=== PATIENT | male | born 1975 | race Caucasian/White ===

== ENCOUNTER → 2019-03-08 | Outpatient (CLI) | payer BC ==
--- NOTE | 2019-03-08 13:48 | Diagnostic Imaging Report ---
PROCEDURE: CT neck soft tissue without contrast. TECHNIQUE: Multiple contiguous axial images were obtained through the neck without the use of intravenous contrast. Auto Exposure Controls were utilized during the CT exam to meet ALARA standards for radiation dose reduction. INDICATION: Lump in the right neck/jaw. COMPARISON: None. FINDINGS: A large soft tissue mass is seen in the area of a right level II cervical lymph node measuring 4.6 x 3.3 cm and 5.0 cm craniocaudal (image 55 series 2 and image 26 series 602). This is displacing the right sternocleidomastoid muscle laterally. Additional mildly prominent cervical lymph nodes are seen bilaterally. The posterior nasopharynx and oropharynx demonstrate appropriate symmetry. There is no displacement of the parapharyngeal fat planes. There is no abnormal process evident within the prevertebral or retropharyngeal space. There is no evidence of abnormal thickening of the epiglottis or aryepiglottic folds. The vocal folds appear symmetric. The parotid, submandibular and thyroid gland are unremarkable. The visualized lung apices are clear. Included intracranial views demonstrate no acute abnormalities. A small amount of mucosal thickening is seen in the right frontal sinus and right anterior ethmoid sinuses. Otherwise, the paranasal sinuses are well pneumatized. The mastoid air cells are well pneumatized. The included globes and orbits are symmetric and unremarkable. There are mild degenerative features within the cervical spine without CT evidence of an acute or suspicious osseous abnormality. Cervical spine alignment appears within normal limits. IMPRESSION: 1. Large soft tissue mass in the area of a right level II cervical lymph node. Other possible etiologies include a second brachial cleft cyst or lymphocele. Recommend further evaluation with biopsy or FNA and if indicated contrast study of the neck to further evaluate. Findings were discussed with Tommie Hernandez at 1:42 p.m. on 03/08/2019. Dictated by: Dictated on workstation # [id number]
== END ==
LOC: RAD 13:02
PROVIDERS: ATTEND Nurse Practitioner Family
DX: R59.0 Localized enlarged lymph nodes (principal)
CPT/HCPCS: 70490

== ENCOUNTER → 2019-03-27 | Outpatient (CLI) | payer BC ==
[~2019-03-27] MED LIST: CATHETER FLUSH 10 ML SYR IV PRN; HOLD METFORMIN - RECEIVED CONTRAST 20 ML VIAL IV SCH; IOHEXOL 350 MG/ML 100 ML (OMNIPAQUE 350) VIAL IV ONE; NS 100 ML (IVPB) BAG IV ONE
--- NOTE | 2019-03-27 15:50 | Diagnostic Imaging Report ---
PROCEDURE: CT neck soft tissue with contrast. TECHNIQUE: Multiple contiguous axial images were obtained through the neck after the administration of contrast. Auto Exposure Controls were utilized during the CT exam to meet ALARA standards for radiation dose reduction. INDICATION: Right neck mass. FINDINGS: There is a mass lateral to the carotid space in the right neck along the anteromedial border of the sternocleidomastoid muscle. This appears separate from the parotid gland and submandibular gland. The mass measures approximately 6.6 cm craniocaudal x 3.9 cm AP x 3.6 cm transverse. There appear to be a few fine enhancing internal septa. The parotid, submandibular, and thyroid glands are normal in appearance. The lung apices are clear. Prevertebral soft tissues are within normal limits. The visualized sinuses and mastoid air cells are clear. Visualized intracranial structures are unremarkable. The nasopharyngeal, oropharyngeal, and hypopharyngeal tissues are symmetrical and without mass effect. There is some mild cervical spondylosis. IMPRESSION: Solid mass in the right neck with a few enhancing internal septa. Differential considerations include a lymphatic malformation, neoplasm, or possibly metastatic lymph node. This should be further evaluated with gadolinium-enhanced MRI neck. No other acute abnormality in the neck. Dictated by: Dictated on workstation # [id number]
== END ==
LOC: RAD 14:27
PROVIDERS: ATTEND Otolaryngology Otolaryngology/Facial Plastic Surgery
DX: R22.1 Localized swelling, mass and lump, neck (principal)
CPT/HCPCS: 70491

== ENCOUNTER → 2019-04-13 | Outpatient (CLI) | payer BC ==
[~2019-04-13] MED LIST changes: -CATHETER FLUSH 10 ML SYR IV PRN
--- NOTE | 2019-04-13 08:21 | Diagnostic Imaging Report ---
PROCEDURE: CT chest, abdomen, and pelvis with contrast. TECHNIQUE: Multiple contiguous axial images were obtained through the chest, abdomen, and pelvis after the administration of intravenous contrast. Auto Exposure Controls were utilized during the CT exam to meet ALARA standards for radiation dose reduction. INDICATION: Right neck malignancy. Study is performed to evaluate for primary neoplasm location. CT CHEST: No axillary lymphadenopathy is detected. No definite mediastinal or hilar lymphadenopathy is detected. No pericardial or pleural fluid is identified. No pulmonary nodules, masses or infiltrates are detected. IMPRESSION: Unremarkable CT of the chest. There is no evidence of thoracic lymphadenopathy or pulmonary mass. CT ABDOMEN AND PELVIS: Diffuse low-density throughout the liver is noted consistent with hepatic steatosis. No discrete liver mass is detected. The gallbladder is unremarkable. No biliary ductal dilatation is seen. The pancreas and spleen are unremarkable. No adrenal mass is detected. Kidneys are unremarkable. There is no hydronephrosis. Aorta is non-aneurysmal. Small and large bowel loops are normal caliber. There is no obstruction. No free fluid or fluid collection is identified. No central retroperitoneal or mesenteric lymphadenopathy is detected. No definite iliac or inguinal lymphadenopathy is identified. There is a fat-containing left inguinal hernia. Bladder and prostate are unremarkable. IMPRESSION: 1. Hepatic steatosis. 2. Otherwise unremarkable CT of the abdomen and pelvis. No lymphadenopathy or mass is detected. Dictated by: Dictated on workstation # [id number]
== END ==
LOC: RAD 07:34
PROVIDERS: ATTEND Otolaryngology Otolaryngology/Facial Plastic Surgery
DX: C76.0 Malignant neoplasm of head, face and neck (principal)
CPT/HCPCS: 71260; 74177

== ENCOUNTER 2019-04-18 05:50 | Outpatient (CLI) | payer BC ==
[~2019-04-18] VITALS: Ht 185 cm; Wt 140.0 kg
== END 2019-04-18 15:27 | disposition home or self-care (01) ==
LOC: PREOP 05:50
PROVIDERS: ATTEND Otolaryngology Otolaryngology/Facial Plastic Surgery
DX: Z01.818 Encounter for other preprocedural examination (principal)

== ENCOUNTER 2019-04-20 06:49 | Day surgery (SDC) | payer BC ==
[~2019-04-20] VITALS: Ht 185 cm; Wt 140.0 kg
[2019-04-20] VITALS (9 sets, daily range): BP systolic 126–157; BP diastolic 73–106
[2019-04-20] MEDS ORDERED: LIDOCAINE/EPI 1%-1:100,000 (XYLOCAINE) 20ML ONE (07:25)
[2019-04-20] MEDS ORDERED: SEVOFLURANE (ULTANE) 15 ML INHAL SOLN ONE (07:33)
[2019-04-20] MEDS ORDERED: ROCURONIUM 10 MG/ML 5 ML SYRINGE IV ONE (07:33)
[2019-04-20] MEDS ORDERED: fentaNYL INJECTION 100 MCG/2 ML AMP ONE (07:33)
[2019-04-20] MEDS ORDERED: MIDAZOLAM 2 MG/2 ML (VERSED) VIAL ONE ×2 (07:33→07:39)
[2019-04-20] MEDS ORDERED: ONDANSETRON 4 MG/2 ML (SDV) Z0FRAN ONE (07:33)
[2019-04-20] MEDS ORDERED: NEOSTIGMINE 3 MG/3 ML VIAL ONE (07:33)
[2019-04-20] MEDS ORDERED: GLYCOPYRROLATE 0.2 MG/ML (ROBINUL) 2 ML VIAL ONE (07:33)
[2019-04-20] MEDS ORDERED: DEXAMETHASONE 10 MG/ML (DECADRON) 1 ML VIAL ONE (07:33)
[2019-04-20] MEDS ORDERED: proPOfol 200 MG/20 ML (DIPRIVAN) VIAL IV ONE (07:33)
[2019-04-20] MEDS ORDERED: LIDOCAINE PF 2% 5 ML (XYLOCAINE) VIAL ONE (07:33)
[2019-04-20] MEDS: LACTATED RINGERS 1,000 ML IV PRN ×2 (07:34→10:03)
[2019-04-20 07:42] LABS: BASOPHILS % (AUTO) 1 % (0-10); EOSINOPHILS # (AUTO) 0.1 10^3/uL (0.0-0.3); EOSINOPHILS % (AUTO) 2 % (0-10); HEMATOCRIT 48 % (40-54); HEMOGLOBIN 16.3 G/DL (13.3-17.7); LYMPHOCYTES # (AUTO) 2.9 X 10^3 (1.0-4.0); LYMPHOCYTES % (AUTO) 37 % (12-44); MEAN CORPUSCULAR HEMOGLOBIN 30 PG (25-34); MEAN CORPUSCULAR HGB CONC 34 G/DL (32-36); MEAN CORPUSCULAR VOLUME 89 FL (80-99); MEAN PLATELET VOLUME 11.1 FL (7.4-10.4); MONOCYTES # (AUTO) 0.9 X 10^3 (0.0-1.0); MONOCYTES % (AUTO) 11 % (0-12); NEUTROPHILS # (AUTO) 3.9 X 10^3 (1.8-7.8); NEUTROPHILS % (AUTO) 50 % (42-75); PLATELET COUNT 220 10^3/uL (130-400); RED CELL DISTRIBUTION WIDTH 13.2 % (10.0-14.5); WHITE BLOOD COUNT 7.8 10^3/uL (4.3-11.0)
[2019-04-20 07:58] LABS: BUN/CREATININE RATIO 12; CALCIUM 9.2 MG/DL (8.5-10.1); CARBON DIOXIDE 20 MMOL/L (21-32); CHLORIDE 102 MMOL/L (98-107); CREATININE SERUM 1.04 MG/DL (0.60-1.30); GFR ESTIMATED > 60; GLUCOSE 331 MG/DL (70-105); POTASSIUM 4.5 MMOL/L (3.6-5.0); SODIUM 135 MMOL/L (135-145)
--- NOTE | 2019-04-20 08:49 | Progress Note-Pre Operative ---
Pre-Operative Progress Note H&P Reviewed The H&P was reviewed, patient examined and no changes noted. Date Seen by Provider: Apr 20, 2019 Time Seen by Provider: 07:30 Date H&P Reviewed: Apr 20, 2019 Time H&P Reviewed: 07:30 Pre-Operative Diagnosis: Large Right Neck Mass PHILIPPE CASTANEDA MD Apr 20, 2019 08:49
[2019-04-20] MEDS ORDERED: MIDAZOLAM 2 MG/2 ML (VERSED) VIAL IVP ONE (09:00)
[2019-04-20] MEDS ORDERED: MUPIROCIN 2% OINT 22 GM (BACTROBAN) TUBE ONE (10:06)
--- NOTE | 2019-04-20 10:14 | Progress Note-Post Operative ---
Post-Operative Progess Note Surgeon (s)/Product Promoter Sales Person (s) Surgeon PHILIPPE CASTANEDA MD Product Promoter Sales Person n/a Pre-Operative Diagnosis Large Right Neck Mass Post-Operative Diagnosis same Post-Op Procedure Note Date of Procedure: Apr 20, 2019 Name of Procedure Performed: Biopsy of Right Cervial Mass Description & Findings Description and Findings: n/a Anesthesia Type get Estimated Blood Loss minimal Packing none. Specimen(s) collected/removed right cervical mass to path-pathology pending PHILIPPE CASTANEDA MD Apr 20, 2019 10:13
[2019-04-20] MEDS ORDERED: ACETAMINOPHEN 325 MG TABLET PO PRN (10:15)
[2019-04-20] MEDS ORDERED: HYDROcodone/APAP 5 MG/325 MG (LORTAB) TAB PO PRN (10:15)
[2019-04-20] MEDS ORDERED: ONDANSETRON 4 MG/2 ML (SDV) Z0FRAN IVP PRN (10:30)
[2019-04-20] MEDS ORDERED: morphine INJ 10 MG/ML 1ML (SYR OR VIAL) IVP ONE (10:30)
[2019-04-20] MEDS ORDERED: HYDROmorphone 2 MG/ML VIAL (DILAUDID) IV ONE (10:30)
[2019-04-20] MEDS ORDERED: HYDR-4226 PO (11:49)
--- NOTE | 2019-04-20 13:07 | Anesthesia-General Post-Op ---
General Patient Condition Mental Status/LOC: Same as Preop Cardiovascular: Satisfactory Nausea/Vomiting: Absent Respiratory: Satisfactory Pain: Controlled Complications: Absent Post Op Complications Complications None Follow Up Care/Instructions Patient Instructions None needed. Anesthesia/Patient Condition Patient Condition Patient was seen this morning after the procedure and he was doing well, no complaints, stable vital signs, no apparent adverse anesthesia problems. NILAY MARTINEZ DO Apr 20, 2019 13:07
--- OUTSIDE RECORDS SUMMARY | 2019-04-24 12:27 | XMS REPORT | Continuity of Care Document ---
Author Organization Unknown Address Unknown Phone Unavailable Allergies Active Description Code Type Severity Reaction Onset Reported/Identified Relationship to Patient Clinical Status Yes No Allergy Information Available [id number] Drug Allergy Unknown N/A 020 Yes No Known Drug Allergies [id number] Drug Allergy Unknown N/A 04/18/2019 Medications There is no data. Problems Date Dx Coded Attending Type Code Diagnosis Diagnosed By 03/28/2019 JAYLYN GANDHI APRN Ot R59 .0 LOCALIZED ENLARGED LYMPH NODES 03/28/2019 PHILIPPE CASTANEDA MD Ot R22 .1 LOCALIZED SWELLING, MASS AND LUMP, NECK 04/12/2019 JAYLYN GANDHI APRN Ot R59 .0 LOCALIZED ENLARGED LYMPH NODES 04/12/2019 PHILIPPE CASTANEDA MD Ot R22 .1 LOCALIZED SWELLING, MASS AND LUMP, NECK 04/13/2019 JAYLYN GANDHI APRN Ot R59 .0 LOCALIZED ENLARGED LYMPH NODES 04/13/2019 PHILIPPE CASTANEDA MD Ot R22 .1 LOCALIZED SWELLING, MASS AND LUMP, NECK 04/13/2019 PHILIPPE CASTANEDA MD Ot R22 .1 LOCALIZED SWELLING, MASS AND LUMP, NECK 04/19/2019 PHILIPPE CASTANEDA MD Ot Z01.818 ENCOUNTER FOR OTHER PREPROCEDURAL EXAMIN Procedures There is no data. Results Test Result Range Methicillin resistant Staphylococcus aur eus (MRSA) screening culture - 04/20/19 07:10 Methicillin resistant Staphylococcus aureus (MRSA) scr eening culture NEG NRG Complete blood count (CBC) with automate d white blood cell (WBC) differential - 04/20/19 07:30 Blood leukocytes automated count (number/volume) 7.8 10*3/uL 4.3-11.0 Blood erythrocytes automated count (number/volume) 5.41 10*6/uL 4.35-5.85 Venous blood hemoglobin measurement (mass/volume) 16.3 g/dL 13.3-17.7 Blood hematocrit (volume fraction) 48 % 40-54 Automated erythrocyte mean corpuscular volume 89 [ foz_us] 80-99 Automated erythrocyte mean corpuscular h emoglobin (mass per erythrocyte) 30 pg 25-34 Automated erythrocyte mean corpuscular h emoglobin concentration measurement (mass/volume) 34 g/dL 32-36 Automated erythrocyte distribution width ratio 13. 2 % 10.0- 14.5 Automated blood platelet count (count/volume) 220 10*3/uL 130-400 Automated blood platelet mean volume measurement 11.1 [foz_us] 7.4-10.4 Automated blood neutrophils/100 leukocytes 50 % 42-75 Automated blood lymphocytes/100 leukocytes 37 % 12-44 Blood monocytes/100 leukocytes 11 % 0-12 Automated blood eosinophils/100 leukocytes 2 % 0-10 Automated blood basophils/100 leukocytes 1 % 0-10 Blood neutrophils automated count (number/volume) 3.9 10*3 1.8-7.8 Blood lymphocytes automated count (number/volume) 2.9 10*3 1.0-4.0 Blood monocytes automated count (number/volume) 0. 9 10*3 0.0-1.0 Automated eosinophil count 0.1 10*3/uL 0 .0-0.3 Automated blood basophil count (count/volume) 0.0 10*3/uL 0.0-0.1 Whole blood basic metabolic panel - 03/0 07/04 07:30 Serum or plasma sodium measurement (moles/volume) 135 mmol/L 135-145 Serum or plasma potassium measurement (moles/volume) 4.5 mmol/L 3.6-5.0 Serum or plasma chloride measurement (moles/volume) 102 mmol/L 98-107 Carbon dioxide 20 mmol/L 21-32 Serum or plasma anion gap determination (moles/volume) 13 mmol/L 5-14 Serum or plasma urea nitrogen measurement (mass/volume ) 12 mg/dL 7-18 Serum or plasma creatinine measurement (mass/volume) 1.04 mg/dL 0.60-1.30 Serum or plasma urea nitrogen/creatinine mass ratio 12 NRG Serum or plasma creatinine measurement w ith calculation of estimated glomerular filtration rate > NRG Serum or plasma glucose measurement (mass/volume) 331 mg/dL 70-105 Serum or plasma calcium measurement (mass/volume) 9.2 mg/dL 8.5-10.1 Encounters ACCT No. Visit Date/Time Discharge Status Pt. Type Provider Facility Loc./Unit Complaint [id number] 04/20/2019 06:49:00 12:43:00 DIS Outpatient PHILIPPE CASTANEDA MD Via [facility] SDC RIGHT NECK MASS [id number] 04/18/2019 05:50:00 15:27:00 DIS Outpatient PHILIPPE CASTANEDA MD Via [facility] PREOP RIGHT NECK MASS [id number] 04/13/2019 07:34:00 23:59:59 CLS Outpatient PHILIPPE CASTANEDA MD Via [facility] RAD RT NECK MALIGNANT CELL [id number] 03/27/2019 14:27:00 23:59:59 CLS Outpatient PHILIPPE CASTANEDA MD Via [facility] RAD RT NECK MASS [id number] 03/08/2019 13:02:00 23:59:59 CLS Outpatient JAYLYN GANDHI APRN Via [facility] RAD R ANTERIOR CERVICAL LYM PHADENOPATHY
== END 2019-04-20 12:43 | disposition home or self-care (01) ==
LOC: SDC 06:49
PROVIDERS: ATTEND Otolaryngology Otolaryngology/Facial Plastic Surgery
DX: C79.89 Secondary malignant neoplasm of other specified sites (principal); C80.1 Malignant (primary) neoplasm, unspecified; Z11.2 Encounter for screening for other bacterial diseases; F17.210 Nicotine dependence, cigarettes, uncomplicated; Z86.14 Personal history of Methicillin resistant Staphylococcus aureus infection
CPT/HCPCS: 36415; 80048; 85025; 87081; 93005

== ENCOUNTER 2019-06-16 09:20 | Outpatient (RCR) | payer BC ==
[~2019-06-16] VITALS: Ht 190.5 cm; Wt 141.8 kg
[~2019-06-16 09:20] MED LIST changes: +EMPA10TA PO; -HOLD METFORMIN - RECEIVED CONTRAST 20 ML VIAL IV SCH; +HYDR-4226 PO; -IOHEXOL 350 MG/ML 100 ML (OMNIPAQUE 350) VIAL IV ONE; +METF-397 PO; -NS 100 ML (IVPB) BAG IV ONE
== END 2019-06-16 15:13 | disposition home or self-care (01) ==
LOC: PREOP 09:20
PROVIDERS: ATTEND Surgery
DX: Z01.818 Encounter for other preprocedural examination (principal); Z01.812 Encounter for preprocedural laboratory examination; C34.90 Malignant neoplasm of unspecified part of unspecified bronchus or lung; R22.1 Localized swelling, mass and lump, neck
CPT/HCPCS: 87635

== ENCOUNTER 2019-06-21 06:27 | Day surgery (SDC) | payer BC ==
[~2019-06-21] VITALS: Ht 190.5 cm; Wt 141.8 kg
[2019-06-21] VITALS (7 sets, daily range): BP systolic 110–142; BP diastolic 74–94
[2019-06-21] MEDS ORDERED: LACTATED RINGERS 1,000 ML IV PRN (06:32)
--- OUTSIDE RECORDS SUMMARY | 2019-06-21 06:32 | XMS REPORT | Continuity of Care Document ---
Demographics Preferred Language Unknown Marital Status Unknown Shinto Affiliation Unknown Race Unknown Ethnic Group Unknown Author Organization Unknown Address Unknown Phone Unavailable Allergies Active Description Code Type Severity Reaction Onset Reported/Identified Relationship to Patient Clinical Status Yes No Allergy Information Available [id number] Drug Allergy Unknown N/A 020 Yes No Known Drug Allergies [id number] Drug Allergy Unknown N/A 04/18/2019 Medications There is no data. 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 1 LOCALIZED SWELLING, MASS AND LUMP, NECK 01/15/1512 SARAH GARCIA DO, Ot Z01.812 ENCOUNTER FOR PREPROCEDURAL LABORATORY E 01/15/1512 SARAH GARCIA DO, Ot Z01.818 ENCOUNTER FOR OTHER PREPROCEDURAL EXAMIN 03/28/2019 JAYLYN GANDHI APRN Ot R59 .0 [...] .1 LOCALIZED SWELLING, MASS AND LUMP, NECK 04/18/2019 PHILIPPE CASTANEDA MD Ot Z01.818 ENCOUNTER FOR OTHER PREPROCEDURAL EXAMIN 04/19/2019 PHILIPPE CASTANEDA MD Ot Z01.818 ENCOUNTER FOR OTHER PREPROCEDURAL EXAMIN 04/20/2019 PHILIPPE CASTANEDA MD Ot C79.89 SECONDARY MALIGNANT NEOPLASM OF OTHER SP 04/20/2019 PHILIPPE CASTANEDA MD Ot C80 .1 MALIGNANT (PRIMARY) NEOPLASM, UNSPECIFIE 04/20/2019 PHILIPPE CASTANEDA MD, Ot F17.210 NICOTINE DEPENDENCE, CIGARETTES, UNCOMPL 04/20/2019 PHILIPPE CASTANEDA MD, Ot Z11 .2 ENCOUNTER FOR SCREENING FOR OTHER BACTER 04/20/2019 PHILIPPE CASTANEDA MD, Ot Z86.14 PERSONAL HISTORY OF METHICILLIN RESIS ST 05/01/2019 PHILIPPE CASTANEDA MD Ot C76 .0 MALIGNANT NEOPLASM OF HEAD, FACE AND NEC 05/02/2019 PHILIPPE CASTANEDA MD, Ot C79.89 SECONDARY MALIGNANT NEOPLASM OF OTHER SP 05/02/2019 PHILIPPE CASTANEDA MD Ot C80 .1 MALIGNANT (PRIMARY) NEOPLASM, UNSPECIFIE 05/02/2019 PHILIPPE CASTANEDA MD, Ot F17.210 NICOTINE DEPENDENCE, CIGARETTES, UNCOMPL 05/02/2019 PHILIPPE CASTANEDA MD, Ot Z11 .2 ENCOUNTER FOR SCREENING FOR OTHER BACTER 05/02/2019 PHILIPPE CASTANEDA MD, Ot Z86.14 PERSONAL HISTORY OF METHICILLIN RESIS ST 06/06/2019 JAYLYN GANDHI Chery LABOR ECONOMICS PROFESSOR Ot R59 .0 LOCALIZED ENLARGED LYMPH NODES 06/06/2019 PHILIPPE CASTANEDA MD Ot R22 .1 LOCALIZED SWELLING, MASS AND LUMP, NECK 06/06/2019 PHILIPPE CASTANEDA MD, Ot C76 .0 MALIGNANT NEOPLASM OF HEAD, FACE AND NEC Procedures There is no data. Results Test [...] 0.0-0.1 Whole blood basic metabolic panel - 07/04 07:30 Serum or plasma sodium measurement [...] plasma calcium measurement (mass/volume) 9.2 mg/dL 8.5-10.1 CMP - 05/17/19 12:41 GLUCOSE 217 mg/dL 65-99 UREA NITROGEN (BUN) 15 mg/dL 7-25 CREATININE 0.80 mg/dL 0.60-1.35 eGFR NON-AFR. ZIMBABWEAN 110 mL/min/1.73m2 > OR = 60 eGFR 128 mL/min/1.73m2 > OR = 60 BUN/CREATININE RATIO NOT APPLICABLE (calc) 6-22 SODIUM 137 mmol/L 135-146 POTASSIUM 4.3 mmol/L 3.5-5.3 CHLORIDE 101 mmol/L 98-110 CARBON DIOXIDE 23 mmol/L 20-32 CALCIUM 10.1 mg/dL 8.6-10.3 PROTEIN, TOTAL 8.0 g/dL 6.1-8.1 ALBUMIN 4.9 g/dL 3.6-5.1 GLOBULIN 3.1 g/dL (calc) 1.9-3.7 ALBUMIN/GLOBULIN RATIO 1.6 (calc) 1.0-2. 5 BILIRUBIN, TOTAL 0.5 mg/dL 0.2-1.2 ALKALINE PHOSPHATASE 98 U/L 36-130 AST 22 U/L 10-40 ALT 45 U/L 9-46 CBC - 05/17/19 12:41 WHITE BLOOD CELL COUNT 8.0 Thousand/uL 3 .8-10.8 RED BLOOD CELL COUNT 5.83 Million/uL 4.2 0-5.80 HEMOGLOBIN 17.6 g/dL 13.2-17.1 HEMATOCRIT 54.4 % 38.5-50.0 MCV 93.3 fL 80.0-100.0 MCH 30.2 pg 27.0-33.0 MCHC 32.4 g/dL 32.0-36.0 RDW 13.1 % 11.0-15.0 PLATELET COUNT 220 Thousand/uL 140-400 MPV 12.3 fL 7.5-12.5 ABSOLUTE NEUTROPHILS 3464 cells/uL 1500- 7800 ABSOLUTE LYMPHOCYTES 3632 cells/uL 850-3 900 ABSOLUTE MONOCYTES 736 cells/uL 200-950 ABSOLUTE EOSINOPHILS 120 cells/uL 15-500 ABSOLUTE BASOPHILS 48 cells/uL 0-200 NEUTROPHILS 43.3 % NRG LYMPHOCYTES 45.4 % NRG MONOCYTES 9.2 % NRG EOSINOPHILS 1.5 % NRG BASOPHILS 0.6 % NRG UA W/ MICROSCOPY - 05/17/19 13:05 COLOR DARK YELLOW YELLOW APPEARANCE CLEAR CLEAR SPECIFIC GRAVITY 1.035 1.001-1.035 PH 5.5 5.0-8.0 GLUCOSE TRACE NEGATIVE BILIRUBIN NEGATIVE NEGATIVE KETONES TRACE NEGATIVE OCCULT BLOOD NEGATIVE NEGATIVE PROTEIN 1+ NEGATIVE NITRITE NEGATIVE NEGATIVE LEUKOCYTE ESTERASE NEGATIVE NEGATIVE WBC NONE SEEN /HPF < OR = 5 RBC 0-2 /HPF < OR = 2 SQUAMOUS EPITHELIAL CELLS NONE SEEN /HPF < OR = 5 BACTERIA NONE SEEN /HPF NONE SEEN HYALINE CAST 0-5 /LPF NONE SEEN TEST AUTHORIZATION - 05/17/19 13:05 TEST NAME: ALBUMIN, RANDOM URINE W/CREAT NRG TEST CODE: [id number] NRG CLIENT CONTACT: DAISY SORENSEN NRG REPORT ALWAYS MESSAGE SIGNATURE NRG COMMENT NRG Coronavirus SARS-CoV-2 SO 2018 0 13:30 Coronavirus Ab [Units/volume] in Serum Negative Negative Encounters ACCT No. Visit Date/Time Discharge Status Pt. Type Provider Facility Loc./Unit Complaint [id number] 05/17/2019 11:00:00 Document Registration [id number] 06/16/2019 09:20:00 15:13:00 DIS Outpatient SARAH GARCIA DO Via [facility] PREOP HIGH GRADE POORLY DIFFE RENTIATED CARCINOMA [id number] 06/14/2019 12:25:00 23:59:59 CLS Outpatient FRAN SHEETS, BRIEN lechuga [facility] ONC [id number] 04/20/2019 06:49:00 12:43:00 DIS Outpatient PHILIPPE CASTANEDA MD Via [facility] SDC RIGHT NECK MASS [id number] 04/18/2019 05:50:00 15:27:00 DIS Outpatient PHILIPPE CASTANEDA MD Via [facility] PREOP RIGHT NECK MASS [id number] 04/13/2019 07:34:00 23:59:59 CLS Outpatient PHILIPPE CASTANEDA MD Via [facility] RAD RT NECK MALIGNANT CELL [id number] 03/27/2019 14:27:00 23:59:59 CLS Outpatient PHILIPPE CASTANEDA MD Via [facility] RAD RT NECK MASS [id number] 03/08/2019 13:02:00 23:59:59 CLS Outpatient JAYLYN GANDHI LABOR ECONOMICS PROFESSOR Via [facility] RAD R ANTERIOR CERVICAL LYM PHADENOPATHY [id number] 06/21/2019 10:00:00 P EN Preadmit SARAH GARCIA DO Via [facility] SDC HIGH GRADE POORLY DIFFERENTI ATED CARCINOMA
[2019-06-21] MEDS ORDERED: ceFAZolin 2 GM IV Premixed 50 ML IV ONE (06:45)
[2019-06-21] MEDS ORDERED: BUP/EPI 0.5% 1:200,000 (SENSORCAINE) 30 ML VIAL ONE (07:09)
[2019-06-21] MEDS ORDERED: 0.9% SODIUM CHLORIDE PF INJ 20 ML VIAL ONE (07:09)
[2019-06-21] MEDS ORDERED: HEParin (CENTRAL IV FLUSH) 500 UNIT/5 ML SYR ONE (07:09)
[2019-06-21] MEDS ORDERED: proPOfol 200 MG/20 ML (DIPRIVAN) VIAL IV ONE ×2 (07:13→08:38)
[2019-06-21] MEDS ORDERED: KETAMINE/NaCl 50 MG/5 ML SYRINGE (ED ONLY) ONE (07:13)
[2019-06-21] MEDS ORDERED: LIDOCAINE PF 2% 5 ML (XYLOCAINE) VIAL ONE (07:13)
[2019-06-21] MEDS ORDERED: MIDAZOLAM 2 MG/2 ML (VERSED) VIAL ONE ×3 (07:13→08:29)
--- NOTE | 2019-06-21 08:10 | Progress Note-Pre Operative ---
Pre-Operative Progress Note H&P Reviewed The H&P was reviewed, patient examined and no changes noted. Date Seen by Provider: June 21, 2019 Time Seen by Provider: 08:00 Date H&P Reviewed: June 21, 2019 Time H&P Reviewed: 08:00 Pre-Operative Diagnosis: malignant tumor neck SARAH GARCIA DO June 21, 2019 08:10
--- NOTE | 2019-06-21 09:04 | Discharge Inst-Simple/Standard ---
Discharge Inst-Standard Patient Instructions/Follow Up Plan of Care/Instructions/FU: 2-3 WEEKS RADHA Activity as Tolerated: No Discharge Diet: Regular Diet Other Inst to Patient Follow up Appt: Make appointment for 2-3 weekS. Instructions: No lifting greater than 10 pounds. No strenuous activity. May shower in 24 hours, no tub bath or soaking. Use incentive spirometer at home as directed. No Smoking Skin/Wound Care: You have special glue over your incision that will fall off on it's own. USE ICE PACK ON 15 MIN OFF 30 MIN AND REPEAT TO REDUCE SWELLING AND DISCOMFORT. Symptoms to Report: Appetite Changes, Extremity Discoloration, Numbness/Tingling, Swelling Increased, Bleeding Excessive, Eyesight Changes, Pain Increased, Urine Color Change, Constipation(Persistent), Fever over 101 degree F, Pain/Pressure in chest, Urinating Difficulty, Cough Up/Vomit Blood, Heart Beat Irreg/Pounding, Pain/Pressure in jaw, Vaginal Bleeding Increase, Cramps in feet or legs, Lightheadedness, Pain/Pressure in shoulder, Diarrhea(Persistent), Memory Changes Suddenly, Questions/Concerns, Weight gain consecutive days, Dizziness/Fainting, Nausea/Vomiting, Shortness of Breath, Weight gain over 2 pounds If questions or concerns contact your physician Or seek help at emergency department. SARAH GARCIA DO June 21, 2019 09:04
--- NOTE | 2019-06-21 09:11 | Progress Note-Post Operative ---
Post-Operative Progess Note Surgeon (s)/Regulatory Affairs Coordinator (s) Surgeon SARAH GARCIA DO Regulatory Affairs Coordinator: NA Pre-Operative Diagnosis malignant tumor neck Post-Operative Diagnosis SAME Procedure & Operative Findings Date of Procedure 06/21/19 Procedure Performed/Findings PROCEDURE: LEFT internal jugular port placement using ultrasound guidance. COMPLICATIONS: None. INDICATIONS: The patient is a 43 year old male with malignant tumor of right neck. Patient understands the risks and benefits of port placement and wished to proceed with the procedure. Consent was signed on the chart. PROCEDURE: The patient was taken to the operating suite, was prepped and draped in the sterile fashion. A surgical pause was performed. Ultrasound was used to locate the internal jugular vein. Once located anesthetic was infiltrated above it. Using micro-access kit, the left internal vein was accessed. Dark nonpulsatile blood was withdrawn. The wire was inserted. Fluoroscopy assured proper placement. The needle was removed. The micro-access dilator was advanced over the wire and the wire was removed. The regular wire was inserted and fluoroscopy assured proper placement. The wire was then secured. Local anesthetic was used to anesthetize from the neck for tunneling down to the left chest and for pocket creation. A 15 blade scalpel was used to make an incision over the left chest. Cautery was used to dissect down to the pectoral fascia. A pocket was created with blunt dissection. The dilator sheath was then advanced over the wire under fluoroscopy and the dilator and wire were removed. The Groshong catheter was inserted through the sheath and the sheath was then removed. The Groshong wire was removed. The catheter was then tunneled to the right chest pocket. Fluoroscopy was used to cut to length and this was then attached to the port which was then placed within the pocket. The port was then accessed without difficulty. It was then flushed with saline and then heparin. The subcutaneous tissues were then reapproximated using 3-0 Vicryl. The areas were then washed and dried. Skin Affix was placed over incision. The insertion point of the neck Skin Affix was placed over the incision. The patient tolerated the procedure well without complication and was taken to recovery room in stable condition. Chest x-ray is pending. Anesthesia Type mac c local Estimated Blood Loss Estimated blood loss (mL): min Specimens/Packing Specimens Removed SARAH Cunningham DO June 21, 2019 09:11
[2019-06-21] MEDS ORDERED: ONDANSETRON 4 MG/2 ML (SDV) Z0FRAN IVP PRN (09:15)
[2019-06-21] MEDS ORDERED: morphine INJ 10 MG/ML 1ML (SYR OR VIAL) IVP ONE (09:15)
--- NOTE | 2019-06-21 09:42 | Diagnostic Imaging Report ---
INDICATION: Postop. FINDINGS: Portable chest. The Port-A-Cath is present on the left. Tip extends to the cavoatrial junction. The lungs are well-aerated and clear. No pneumothorax or pleural effusion. Heart is not enlarged. IMPRESSION: Satisfactory appearing Port-A-Cath placement with no complications noted. Dictated by: Dictated on workstation # [id number]
--- NOTE | 2019-06-21 09:43 | Anesthesia-General Post-Op ---
MAC Patient Condition Mental Status/LOC: Same as Preop Cardiovascular: Satisfactory Nausea/Vomiting: Absent Respiratory: Satisfactory Pain: Controlled Complications: Absent Post Op Complications Complications None Follow Up Care/Instructions Patient Instructions None needed. Anesthesiology Discharge Order Discharge Order Patient is doing well, no complaints, stable vital signs, no apparent adverse anesthesia problems. NILAY MARTINEZ DO June 21, 2019 09:43
--- NOTE | 2019-06-21 09:55 | Diagnostic Imaging Report ---
EXAMINATION: Fluoroscopy at 850 INDICATION: Groshong catheter placement Fluoroscopic assistance was provided for Dr. Cabrera. 157.8 seconds of fluoroscopy time was utilized. A single spot film of the upper thorax was obtained. There is a Groshong catheter in place on the left. The tip of the catheter is not well visualized but seems to overlie the junction of the innominate vein and superior vena cava. IMPRESSION: 1. Fluoroscopic assistance was provided for Dr. Cabrera. 2. A follow-up chest exam is pending for further study. Dictated by: Dictated on workstation # [id number]
== END 2019-06-21 10:05 | disposition home or self-care (01) ==
LOC: SDC 06:27
PROVIDERS: ATTEND Surgery
DX: C76.0 Malignant neoplasm of head, face and neck (principal); E11.9 Type 2 diabetes mellitus without complications; E66.9 Obesity, unspecified; Z79.891 Long term (current) use of opiate analgesic; Z79.01 Long term (current) use of anticoagulants; Z79.899 Other long term (current) drug therapy; Z90.89 Acquired absence of other organs; Z87.891 Personal history of nicotine dependence; Z79.84 Long term (current) use of oral hypoglycemic drugs; Z82.49 Family history of ischemic heart disease and other diseases of the circulatory system; Z80.9 Family history of malignant neoplasm, unspecified
CPT/HCPCS: 71045; 82962; 87081

== ENCOUNTER 2019-06-27 14:23 | Outpatient (RCR) | payer BC ==
[~2019-06-27] VITALS: Ht 185.4 cm; Wt 142.0 kg
[2019-07-17] MEDS ORDERED: FOSAPREPITANT (CANCER CENTER) 150 MG in NS (IVPB) CANCER CENTER ONLY 150 ML IV SCH (08:45)
[2019-07-17] MEDS ORDERED: NS IV 1000 ML (CANCER CTR) IV SCH (08:45)
[2019-07-17] MEDS ORDERED: PALONOSETRON HCL 0.25 MG, DEXAMETHASONE INJECTION 10 MG in NS (IVPB) CANCER CENTER 50 ML IV SCH (08:45)
[2019-07-17] MEDS ORDERED: CISPLATIN IV SCH ×4 (09:00)
[2019-07-17] MEDS ORDERED: [UNRECOGNIZED DRUG - OTHER] IV SCH ×4 (09:00)
[2019-07-17] MEDS ORDERED: MANNITOL IV SCH ×4 (09:00)
[2019-07-18 09:14] LABS: BASOPHILS % (AUTO) 0 % (0-10); EOSINOPHILS # (AUTO) 0.2 10^3/uL (0.0-0.3); EOSINOPHILS % (AUTO) 3 % (0-10); HEMATOCRIT 47 % (40-54); HEMOGLOBIN 15.7 G/DL (13.3-17.7); LYMPHOCYTES # (AUTO) 3.4 X 10^3 (1.0-4.0); LYMPHOCYTES % (AUTO) 44 % (12-44); MEAN CORPUSCULAR HEMOGLOBIN 30 PG (25-34); MEAN CORPUSCULAR HGB CONC 34 G/DL (32-36); MEAN CORPUSCULAR VOLUME 89 FL (80-99); MEAN PLATELET VOLUME 10.6 FL (7.4-10.4); MONOCYTES # (AUTO) 0.8 X 10^3 (0.0-1.0); MONOCYTES % (AUTO) 10 % (0-12); NEUTROPHILS # (AUTO) 3.3 X 10^3 (1.8-7.8); NEUTROPHILS % (AUTO) 43 % (42-75); PLATELET COUNT 217 10^3/uL (130-400); WHITE BLOOD COUNT 7.7 10^3/uL (4.3-11.0)
[2019-07-18 09:39] LABS: ALANINE AMINOTRANSFERASE 38 U/L (0-55); ALBUMIN 3.9 GM/DL (3.2-4.5); ALKALINE PHOSPHATASE 103 U/L (40-136); BILIRUBIN,TOTAL 0.5 MG/DL (0.1-1.0); BUN/CREATININE RATIO 11; CALCIUM 8.9 MG/DL (8.5-10.1); CARBON DIOXIDE 22 MMOL/L (21-32); CHLORIDE 104 MMOL/L (98-107); CREATININE SERUM 0.94 MG/DL (0.60-1.30); GFR ESTIMATED > 60; GLUCOSE 164 MG/DL (70-105); POTASSIUM 3.9 MMOL/L (3.6-5.0); SODIUM 138 MMOL/L (135-145); TOTAL PROTEIN 7.3 GM/DL (6.4-8.2)
== END 2019-07-18 09:10 | disposition home or self-care (01) ==
LOC: ONC 14:23
PROVIDERS: ATTEND Internal Medicine Hematology & Oncology
DX: C79.89 Secondary malignant neoplasm of other specified sites (principal); C80.1 Malignant (primary) neoplasm, unspecified; F17.210 Nicotine dependence, cigarettes, uncomplicated
CPT/HCPCS: 80053; 83735; 85025; 99213; 99214

== ENCOUNTER 2019-08-09 09:41 | Outpatient (RCR) | payer BC ==
[2019-07-24 14:48] LABS: BASOPHILS % (AUTO) 0 % (0-10); EOSINOPHILS # (AUTO) 0.1 10^3/uL (0.0-0.3); EOSINOPHILS % (AUTO) 1 % (0-10); HEMATOCRIT 46 % (40-54); HEMOGLOBIN 15.6 G/DL (13.3-17.7); LYMPHOCYTES # (AUTO) 1.6 X 10^3 (1.0-4.0); LYMPHOCYTES % (AUTO) 26 % (12-44); MEAN CORPUSCULAR HEMOGLOBIN 30 PG (25-34); MEAN CORPUSCULAR HGB CONC 34 G/DL (32-36); MEAN CORPUSCULAR VOLUME 88 FL (80-99); MEAN PLATELET VOLUME 10.9 FL (7.4-10.4); MONOCYTES # (AUTO) 0.7 X 10^3 (0.0-1.0); MONOCYTES % (AUTO) 11 % (0-12); NEUTROPHILS # (AUTO) 3.8 X 10^3 (1.8-7.8); NEUTROPHILS % (AUTO) 63 % (42-75); PLATELET COUNT 138 10^3/uL (130-400); RED CELL DISTRIBUTION WIDTH 13.5 % (10.0-14.5); WHITE BLOOD COUNT 6.1 10^3/uL (4.3-11.0)
[2019-07-24 15:02] LABS: BUN/CREATININE RATIO 14; CALCIUM 9.5 MG/DL (8.5-10.1); CARBON DIOXIDE 25 MMOL/L (21-32); CHLORIDE 101 MMOL/L (98-107); CREATININE SERUM 0.81 MG/DL (0.60-1.30); GFR ESTIMATED > 60; GLUCOSE 186 MG/DL (70-105); POTASSIUM 4.4 MMOL/L (3.6-5.0); SODIUM 133 MMOL/L (135-145)
[2019-07-31 14:57] LABS: BASOPHILS % (AUTO) 0 % (0-10); EOSINOPHILS % (AUTO) 1 % (0-10); HEMATOCRIT 42 % (40-54); HEMOGLOBIN 14.1 G/DL (13.3-17.7); LYMPHOCYTES # (AUTO) 1.1 X 10^3 (1.0-4.0); LYMPHOCYTES % (AUTO) 29 % (12-44); MEAN CORPUSCULAR HEMOGLOBIN 30 PG (25-34); MEAN CORPUSCULAR HGB CONC 34 G/DL (32-36); MEAN CORPUSCULAR VOLUME 90 FL (80-99); MEAN PLATELET VOLUME 10.5 FL (7.4-10.4); MONOCYTES # (AUTO) 0.3 X 10^3 (0.0-1.0); MONOCYTES % (AUTO) 8 % (0-12); NEUTROPHILS # (AUTO) 2.4 X 10^3 (1.8-7.8); NEUTROPHILS % (AUTO) 61 % (42-75); PLATELET COUNT 126 10^3/uL (130-400); RED CELL DISTRIBUTION WIDTH 13.6 % (10.0-14.5); WHITE BLOOD COUNT 3.9 10^3/uL (4.3-11.0)
[2019-07-31 15:18] LABS: BUN/CREATININE RATIO 6; CARBON DIOXIDE 23 MMOL/L (21-32); CHLORIDE 103 MMOL/L (98-107); GFR ESTIMATED > 60; GLUCOSE 217 MG/DL (70-105); POTASSIUM 3.9 MMOL/L (3.6-5.0); SODIUM 136 MMOL/L (135-145)
[~2019-08-09 09:41] MED LIST changes: +CISPLATIN IV SCH; +FOSAPREPITANT (CANCER CENTER) 150 MG in NS (IVPB) CANCER CENTER ONLY 150 ML IV SCH; +MANNITOL IV SCH; +NS IV 1000 ML (CANCER CTR) 1,000 ML ONE; +NS IV 1000 ML (CANCER CTR) IV SCH; +PALONOSETRON HCL 0.25 MG, DEXAMETHASONE INJECTION 10 MG in NS (IVPB) CANCER CENTER 50 ML IV SCH; +[UNRECOGNIZED DRUG - OTHER] IV SCH
[2019-08-09 10:04] LABS: BASOPHILS % (AUTO) 1 % (0-10); EOSINOPHILS # (AUTO) 0.1 10^3/uL (0.0-0.3); EOSINOPHILS % (AUTO) 1 % (0-10); HEMATOCRIT 44 % (40-54); HEMOGLOBIN 14.9 G/DL (13.3-17.7); LYMPHOCYTES # (AUTO) 1.3 X 10^3 (1.0-4.0); LYMPHOCYTES % (AUTO) 36 % (12-44); MEAN CORPUSCULAR HEMOGLOBIN 31 PG (25-34); MEAN CORPUSCULAR HGB CONC 34 G/DL (32-36); MEAN CORPUSCULAR VOLUME 90 FL (80-99); MEAN PLATELET VOLUME 9.8 FL (7.4-10.4); MONOCYTES # (AUTO) 0.8 X 10^3 (0.0-1.0); MONOCYTES % (AUTO) 22 % (0-12); NEUTROPHILS # (AUTO) 1.4 X 10^3 (1.8-7.8); NEUTROPHILS % (AUTO) 40 % (42-75); PLATELET COUNT 319 10^3/uL (130-400); RED CELL DISTRIBUTION WIDTH 14.6 % (10.0-14.5); WHITE BLOOD COUNT 3.6 10^3/uL (4.3-11.0)
[2019-08-09 10:39] LABS: ALANINE AMINOTRANSFERASE 39 U/L (0-55); ALBUMIN 4.3 GM/DL (3.2-4.5); ALKALINE PHOSPHATASE 102 U/L (40-136); BILIRUBIN,TOTAL 0.5 MG/DL (0.1-1.0); BUN/CREATININE RATIO 6; CALCIUM 9.4 MG/DL (8.5-10.1); CARBON DIOXIDE 24 MMOL/L (21-32); CHLORIDE 104 MMOL/L (98-107); CREATININE SERUM 0.93 MG/DL (0.60-1.30); GFR ESTIMATED > 60; GLUCOSE 119 MG/DL (70-105); MAGNESIUM 2.1 MG/DL (1.6-2.4); POTASSIUM 4.2 MMOL/L (3.6-5.0); SODIUM 139 MMOL/L (135-145); TOTAL PROTEIN 7.7 GM/DL (6.4-8.2)
[2019-08-16 14:20] LABS: BASOPHILS % (AUTO) 0 % (0-10); EOSINOPHILS % (AUTO) 0 % (0-10); HEMATOCRIT 44 % (40-54); HEMOGLOBIN 15.2 G/DL (13.3-17.7); LYMPHOCYTES # (AUTO) 0.9 X 10^3 (1.0-4.0); LYMPHOCYTES % (AUTO) 15 % (12-44); MEAN CORPUSCULAR HEMOGLOBIN 30 PG (25-34); MEAN CORPUSCULAR HGB CONC 34 G/DL (32-36); MEAN CORPUSCULAR VOLUME 88 FL (80-99); MEAN PLATELET VOLUME 10.6 FL (7.4-10.4); MONOCYTES % (AUTO) 17 % (0-12); NEUTROPHILS # (AUTO) 4.1 X 10^3 (1.8-7.8); NEUTROPHILS % (AUTO) 68 % (42-75); PLATELET COUNT 168 10^3/uL (130-400); RED CELL DISTRIBUTION WIDTH 14.4 % (10.0-14.5); WHITE BLOOD COUNT 6.1 10^3/uL (4.3-11.0)
[2019-08-16 14:39] LABS: BUN/CREATININE RATIO 10; CALCIUM 9.8 MG/DL (8.5-10.1); CARBON DIOXIDE 24 MMOL/L (21-32); CHLORIDE 102 MMOL/L (98-107); CREATININE SERUM 0.87 MG/DL (0.60-1.30); GFR ESTIMATED > 60; GLUCOSE 117 MG/DL (70-105); POTASSIUM 4.4 MMOL/L (3.6-5.0); SODIUM 137 MMOL/L (135-145)
== END 2019-08-16 12:58 | disposition home or self-care (01) ==
LOC: ONC 09:41
PROVIDERS: ATTEND Internal Medicine Hematology & Oncology
DX: Z51.11 Encounter for antineoplastic chemotherapy (principal); C49.0 Malignant neoplasm of connective and soft tissue of head, face and neck
CPT/HCPCS: 36591; 80048; 80053; 83735; 85025; 96367; 96375; 96413

== ENCOUNTER 2019-09-08 10:27 | Outpatient (RCR) | payer BC ==
[~2019-09-08 10:27] MED LIST changes: -CISPLATIN IV SCH; -FOSAPREPITANT (CANCER CENTER) 150 MG in NS (IVPB) CANCER CENTER ONLY 150 ML IV SCH; -MANNITOL IV SCH; -NS IV 1000 ML (CANCER CTR) 1,000 ML ONE; -NS IV 1000 ML (CANCER CTR) IV SCH; -PALONOSETRON HCL 0.25 MG, DEXAMETHASONE INJECTION 10 MG in NS (IVPB) CANCER CENTER 50 ML IV SCH; -[UNRECOGNIZED DRUG - OTHER] IV SCH
[2019-09-11] MEDS ORDERED: SUCR1TAB36 PO (08:32)
== END 2019-09-08 12:08 | disposition home or self-care (01) ==
LOC: PREOP 10:27
PROVIDERS: ATTEND Surgery
DX: Z01.818 Encounter for other preprocedural examination (principal)

== ENCOUNTER 2019-09-11 06:28 | Day surgery (SDC) | payer BC ==
[~2019-09-11] VITALS: Ht 185.5 cm; Wt 114.3 kg
[2019-09-11] VITALS (8 sets, daily range): BP systolic 105–136; BP diastolic 83–99
[2019-09-11] MEDS ORDERED: LACTATED RINGERS 1,000 ML IV PRN (06:35)
[2019-09-11] MEDS ORDERED: CATHETER FLUSH 10 ML SYR IV PRN (06:45)
[2019-09-11] MEDS ORDERED: ceFAZolin 2 GM IV Premixed 50 ML IV ONE (06:45)
--- OUTSIDE RECORDS SUMMARY | 2019-09-11 06:47 | XMS REPORT | Continuity of Care Document ---
Demographics Preferred Language Unknown Marital Status Unknown Uatsdin Affiliation Unknown Race Unknown Ethnic Group Unknown Author Organization Unknown Address Unknown Phone Unavailable Allergies Active Description Code Type Severity Reaction Onset Reported/Identified Relationship to Patient Clinical Status Yes No Allergy Information Available [id number] Drug Allergy Unknown N/A 020 Yes No Known Drug Allergies [id number] Drug Allergy Unknown N/A 06/21/2019 Medications There is no data. Problems Date Dx Coded Attending Type Code Diagnosis Diagnosed By BIREN PETERS MD, Ot C79.89 SECONDARY MALIGNANT NEOPLASM OF OTHER SP BRIEN PETERS MD, Ot C80.1 MALIGNANT (PRIMARY) NEOPLASM, UNSPECIFIE BRIEN PETERS MD Ot F17.210 NICOTINE DEPENDENCE, CIGARETTES, UNCOMPL 01/15/1512 SARAH GARCIA DO Ot C34. 90 MALIGNANT NEOPLASM OF UNSP PART OF UNSP 01/15/1512 SARAH GARCIA DO, Ot C80. 1 MALIGNANT (PRIMARY) NEOPLASM, UNSPECIFIE [facility]. 1 LOCALIZED SWELLING, MASS AND LUMP, NECK 01/15/1512 GARCIA SARAH CHILDERS Ot Z01.812 ENCOUNTER FOR PREPROCEDURAL LABORATORY E 01/15/1512 [place] SARAH CHILDERS Ot Z01.818 ENCOUNTER FOR OTHER PREPROCEDURAL EXAMIN [...] MALIGNANT (PRIMARY) NEOPLASM, UNSPECIFIE 04/20/2019 PHILIPPE CASTANEDA MD Ot F17.210 NICOTINE DEPENDENCE, CIGARETTES, UNCOMPL 04/20/2019 PHILIPPE CASTANEDA MD Ot Z11 .2 ENCOUNTER FOR SCREENING FOR OTHER BACTER 04/20/2019 PHILIPPE CASTANEDA MD Ot Z86.14 PERSONAL HISTORY OF METHICILLIN RESIS ST 05/01/2019 PHILIPPE CASTANEDA MD Ot C76 .0 MALIGNANT NEOPLASM OF HEAD, FACE AND NEC 05/02/2019 PHILIPPE CASTANEDA MD Ot C79.89 SECONDARY MALIGNANT NEOPLASM OF OTHER SP 05/02/2019 PHILIPPE CASTANEDA MD Ot C80 .1 MALIGNANT (PRIMARY) NEOPLASM, UNSPECIFIE 05/02/2019 PHILIPPE CASTANEDA MD Ot F17.210 NICOTINE DEPENDENCE, CIGARETTES, UNCOMPL 05/02/2019 PHILIPPE CASTANEDA MD Ot Z11 .2 ENCOUNTER FOR SCREENING FOR OTHER BACTER 05/02/2019 PHILIPPE CASTANEDA MD Ot Z86.14 PERSONAL HISTORY OF METHICILLIN RESIS ST 06/06/2019 JAYLYN GANDHI PADDED PRODUCTS FINISHER Ot R59 .0 LOCALIZED ENLARGED LYMPH NODES 06/06/2019 PHILIPPE CASTANEDA MD Ot R22 .1 LOCALIZED SWELLING, MASS AND LUMP, NECK 06/06/2019 PHILIPPE CASTANEDA MD Ot C76 .0 MALIGNANT NEOPLASM OF HEAD, FACE AND NEC 06/21/2019 SARAH GARCIA DO Ot C76. 0 MALIGNANT NEOPLASM OF HEAD, FACE AND NEC 06/21/2019 SARAH GARCIA DO Ot E11. 9 TYPE 2 DIABETES MELLITUS WITHOUT COMPLIC 06/21/2019 SARAH GARCIA DO Ot E66. 9 OBESITY, UNSPECIFIED 06/21/2019 SARAH GARCIA DO Ot Z79. 01 LEAN ENGINEER (CURRENT) USE OF ANTICOAGULANT 06/21/2019 SARAH GARCIA DO Ot Z79. 84 LEAN ENGINEER (CURRENT) USE OF ORAL HYPOGLYC 06/21/2019 GARCIA DO, SARAH D Ot Z79.891 [facility] (CURRENT) USE OF OPIATE ANALGE 06/21/2019 [place] DO, SARAH D Ot Z79.899 OTHER LEAN ENGINEER (CURRENT) DRUG THERAPY 06/21/2019 GARCIA DO, SARAH D Ot Z80. 9 FAMILY HISTORY OF MALIGNANT NEOPLASM, UN 06/21/2019 GARCIA DO, SARAH D Ot Z82. 49 FAMILY HX OF ISCHEM HEART DIS AND OTH DI 06/21/2019 GARCIA DO, SARAH D Ot Z87.891 PERSONAL HISTORY OF NICOTINE DEPENDENCE 06/21/2019 GARCIA DO, SARAH D Ot Z90. 89 ACQUIRED ABSENCE OF OTHER ORGANS 06/23/2019 GARCIA DO, SARAH D Ot C76. 0 MALIGNANT NEOPLASM OF HEAD, FACE AND NEC 06/23/2019 GARCIA DO, SARAH D Ot E11. 9 TYPE 2 DIABETES MELLITUS WITHOUT COMPLIC 06/23/2019 [place] DO, SARAH D Ot E66. 9 OBESITY, UNSPECIFIED 06/23/2019 GARCIA DO, SARAH D Ot Z79. 01 [facility] (CURRENT) USE OF ANTICOAGULANT 06/23/2019 [place] DO, SARAH D Ot Z79. 84 LEAN ENGINEER (CURRENT) USE OF ORAL HYPOGLYC 06/23/2019 [place] DO, SARAH D Ot Z79.891 [facility] (CURRENT) USE OF OPIATE ANALGE 06/23/2019 GARCIA DO, SARAH D Ot Z79.899 OTHER [facility] (CURRENT) DRUG THERAPY 06/23/2019 GARCIA DO, SARAH D Ot Z80. 9 FAMILY HISTORY OF MALIGNANT NEOPLASM, UN 06/23/2019 GARCIA DO, SARAH D Ot Z82. 49 FAMILY HX OF ISCHEM HEART DIS AND OTH DI 06/23/2019 GARCIA DO, SARAH D Ot Z87.891 PERSONAL HISTORY OF NICOTINE DEPENDENCE 06/23/2019 GARCIA DO, SARAH D Ot Z90. 89 ACQUIRED ABSENCE OF OTHER ORGANS 06/23/2019 GARCIA DO, SARAH D Ot C76. 0 MALIGNANT NEOPLASM OF HEAD, FACE AND NEC 06/23/2019 GARCIA DO, SARAH D Ot E11. 9 TYPE 2 DIABETES MELLITUS WITHOUT COMPLIC 06/23/2019 GARCIA DO, SARAH D Ot E66. 9 OBESITY, UNSPECIFIED 06/23/2019 GARCIA DO, SARAH D Ot Z79. 01 LEAN ENGINEER (CURRENT) USE OF ANTICOAGULANT 06/23/2019 [place] DOSARAH Ot Z79. 84 [facility] (CURRENT) USE OF ORAL HYPOGLYC 06/23/2019 [place] DOAUGUSTINATT Beau Ot Z79.891 LEAN ENGINEER (CURRENT) USE OF OPIATE ANALGE 06/23/2019 [place] DO, SARAH D Ot Z79.899 OTHER [facility] (CURRENT) DRUG THERAPY 06/23/2019 GARCIA DOSARAH Ot Z80. 9 FAMILY HISTORY OF MALIGNANT NEOPLASM, UN 06/23/2019 [place] DO, SARAH Beau Ot Z82. 49 FAMILY HX OF ISCHEM HEART DIS AND OTH DI 06/23/2019 GARCIA DOAUGUSTINATT D Ot Z87.891 PERSONAL HISTORY OF NICOTINE DEPENDENCE 06/23/2019 GARCIA DOSARAH D Ot Z90. 89 ACQUIRED ABSENCE OF OTHER ORGANS 06/26/2019 [place] DO SARAH D Ot C76. 0 MALIGNANT NEOPLASM OF HEAD, FACE AND NEC 06/26/2019 GARCIA DOSARAH Ot E11. 9 TYPE 2 DIABETES MELLITUS WITHOUT COMPLIC 06/26/2019 [place] DOSARAH Ot E66. 9 OBESITY, UNSPECIFIED 06/26/2019 [place] DOAUGUSTINATT Beua Ot Z79. 01 [facility] (CURRENT) USE OF ANTICOAGULANT 06/26/2019 [place] DOSARAH Ot Z79. 84 [facility] (CURRENT) USE OF ORAL HYPOGLYC 06/26/2019 [place] DO, SARAH D Ot Z79.891 [facility] (CURRENT) USE OF OPIATE ANALGE 06/26/2019 GARCIA DOSARAH Ot Z79.899 OTHER LEAN ENGINEER (CURRENT) DRUG THERAPY 06/26/2019 GARCIA DOSARAH Ot Z80. 9 FAMILY HISTORY OF MALIGNANT NEOPLASM, UN 06/26/2019 [place] DO, SARAH D Ot Z82. 49 FAMILY HX OF ISCHEM HEART DIS AND OTH DI 06/26/2019 GARCIA DOSARAH Ot Z87.891 PERSONAL HISTORY OF NICOTINE DEPENDENCE 06/26/2019 GARCIA DO SARAH D Ot Z90. 89 ACQUIRED ABSENCE OF OTHER ORGANS 06/27/2019 GARCIA DO SARAH D Ot C76. 0 MALIGNANT NEOPLASM OF HEAD, FACE AND NEC 06/27/2019 GARCIA DO SARAH D Ot E11. 9 TYPE 2 DIABETES MELLITUS WITHOUT COMPLIC 06/27/2019 [facility] E66. 9 OBESITY, UNSPECIFIED 06/27/2019 [facility] Ot Z79. 01 [facility] (CURRENT) USE OF ANTICOAGULANT 06/27/2019 [facility] Ot Z79. 84 LEAN ENGINEER (CURRENT) USE OF ORAL HYPOGLYC 06/27/2019 [facility] Ot Z79.891 LEAN ENGINEER (CURRENT) USE OF OPIATE ANALGE 06/27/2019 [facility] Ot Z79.899 OTHER LEAN ENGINEER (CURRENT) DRUG THERAPY 06/27/2019 [facility] SARAH D Ot Z80. 9 FAMILY HISTORY OF MALIGNANT NEOPLASM, UN 06/27/2019 [facility] Ot Z82. 49 FAMILY HX OF ISCHEM HEART DIS AND OTH DI 06/27/2019 [facility] Ot Z87.891 PERSONAL HISTORY OF NICOTINE DEPENDENCE 06/27/2019 [facility] Ot Z90. 89 ACQUIRED ABSENCE OF OTHER ORGANS 06/29/2019 BRIEN PETERS MD Ot C79.89 SECONDARY MALIGNANT NEOPLASM OF OTHER SP 06/29/2019 BRIEN PETERS MD Ot C80.1 MALIGNANT (PRIMARY) NEOPLASM, UNSPECIFIE 06/29/2019 BRIEN PETERS MD Ot F17.210 NICOTINE DEPENDENCE, CIGARETTES, UNCOMPL 07/17/2019 BRIEN PETERS MD Ot C79.89 SECONDARY MALIGNANT NEOPLASM OF OTHER SP 07/17/2019 BRIEN PETERS MD Ot C80.1 MALIGNANT (PRIMARY) NEOPLASM, UNSPECIFIE 07/17/2019 BRIEN PETERS MD Ot F17.210 NICOTINE DEPENDENCE, CIGARETTES, UNCOMPL 07/18/2019 BRIEN PETERS MD Ot C79.89 SECONDARY MALIGNANT NEOPLASM OF OTHER SP 07/18/2019 BRIEN PETERS MD Ot C80.1 MALIGNANT (PRIMARY) NEOPLASM, UNSPECIFIE 07/18/2019 BRIEN PETERS MD Ot F17.210 NICOTINE DEPENDENCE, CIGARETTES, UNCOMPL 07/24/2019 VIDAL WILSON Ot 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 07/24/2019 VIDAL WILSON Ot Z51.11 ENCOUNTER FOR ANTINEOPLASTIC CHEMOTHERAP 2019 VIDAL WILSON Ot 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 Results Test [...] 7-25 CREATININE 0.80 mg/dL 0.60-1.35 eGFR NON-AFR. BERMUDIAN 110 mL/min/1.73m2 > OR = 60 eGFR [...] 13:05 TEST NAME: ALBUMIN, RANDOM URINE W/CREAT [facility] TEST CODE: [id number] [facility] CLIENT CONTACT: DAISY SORENSEN [facility] REPORT ALWAYS MESSAGE SIGNATURE NR COMMENT NRG Coronavirus SARS-CoV-2 SO 2018 0 13:30 Coronavirus Ab [Units/volume] in Serum Negative Negative Capillary blood glucose measurement by g lucometer (mass/volume) - 06/21/19 07:04 Capillary blood glucose measurement by glucometer (mas s/volume) 124 mg/dL 70-110 Methicillin resistant Staphylococcus aur eus (MRSA) screening culture - 06/21/19 07:14 Methicillin resistant Staphylococcus aureus (MRSA) scr eening culture NEG NRG Encounters ACCT No. Visit Date/Time Discharge Status Pt. Type Provider Facility Loc./Unit Complaint [id number] 05/17/2019 11:00:00 Document Registration [id number] 09/08/2019 10:27:00 12:08:00 DIS Outpatient GARCIA SARAH CHILDERS Via [facility] PREOP DYSPHAGIA,HEAD AND NECK CA [id number] 08/09/2019 09:41:00 12:58:00 DIS Outpatient VIDAL WILSON V [facility] ONC [id number] 06/27/2019 14:23:00 09:10:00 DIS Outpatient BRIEN PETERS MD, V [facility] ONC [id number] 06/21/2019 06:27:00 10:05:00 DIS Outpatient GARCIA SARAH CHILDERS Via [facility] SDC HIGH GRADE POORLY DIFFE RENTIATED CARCINOMA [id number] 06/16/2019 09:20:00 15:13:00 DIS Outpatient GARCIA SARAH CHILDERS Via [facility] PREOP HIGH GRADE POORLY DIFFE RENTIATED CARCINOMA [id number] 04/20/2019 06:49:00 12:43:00 DIS Outpatient PHILIPPE CASTANEDA MD Via [facility] SDC RIGHT NECK MASS [id number] 04/18/2019 05:50:00 15:27:00 DIS Outpatient PHILIPPE CASTANEDA MD Via [facility] PREOP RIGHT NECK MASS [id number] 04/13/2019 07:34:00 23:59:59 CLS Outpatient PHILIPPE CASTANEDA MD Via [facility] RAD RT NECK MALIGNANT CELL [id number] 03/27/2019 14:27:00 020 23:59:59 CLS Outpatient TONYA SHEETS, PHILIPPE Kitchen Via [facility] RAD RT NECK MASS [id number] 03/08/2019 13:02:00 020 23:59:59 CLS Outpatient JAYLYN GANDHI APRN Via [facility] RAD R ANTERIOR CERVICAL LYM PHADENOPATHY [id number] 09/11/2019 08:00:00 P EN Preadmit SARAH GARCIA DO Via [facility] SDC DYSPHAGIA,HEAD AND NECK CA [id number] 09/08/2019 08:24:[address] Outpatient SAVANNAH SHEETS, ORTEGA Rod Via [facility] ONC
[2019-09-11] MEDS ORDERED: ONDANSETRON 4 MG/2 ML (SDV) Z0FRAN ONE ×2 (07:07→07:21)
[2019-09-11] MEDS ORDERED: FAMOTIDINE 20MG/2ML IV (PEPCID) ONE (07:07)
[2019-09-11] MEDS ORDERED: PROPOFOL INJECTION 50 ML IV ONE (07:12)
[2019-09-11] MEDS ORDERED: fentaNYL INJECTION 100 MCG/2 ML AMP ONE (07:13)
[2019-09-11] MEDS ORDERED: MIDAZOLAM 2 MG/2 ML (VERSED) VIAL ONE (07:13)
[2019-09-11] MEDS ORDERED: FAMOTIDINE 20MG/2ML IV (PEPCID) IV ONE (07:15)
[2019-09-11] MEDS ORDERED: ONDANSETRON 4 MG/2 ML (SDV) Z0FRAN IV ONE (07:15)
[2019-09-11] MEDS ORDERED: SUCR1TAB36 PO ×2 (08:32)
--- NOTE | 2019-09-11 08:33 | Discharge Inst-Simple/Standard ---
Discharge Inst-Standard Patient Instructions/Follow Up Plan of Care/Instructions/FU: Deborah 1 week. May start using Gastrostomy tube in 24 hours. Activity as Tolerated: No Discharge Diet: Formula (feeds per gastrostomy tube per systems mgr) SARAH GARCIA DO Sep 11, 2019 08:33
--- NOTE | 2019-09-11 08:40 | Progress Note-Post Operative ---
Post-Operative Progess Note Surgeon (s)/Drafting Teacher (s) Surgeon SARAH GARCIA DO Drafting Teacher: Dr. Umana see his dictation for EGD Pre-Operative Diagnosis wt loss, dysphagia, head and neck ca Post-Operative Diagnosis same Procedure & Operative Findings Date of Procedure 09/11/19 Procedure Performed/Findings Gastrostomy tube placement- Deborah EGD-Lynsday Anesthesia Type mac c local Estimated Blood Loss Estimated blood loss (mL): minimal Specimens/Packing Specimens Removed na SARAH GARCIA DO Sep 11, 2019 08:40
--- NOTE | 2019-09-11 08:40 | Anesthesia-General Post-Op ---
MAC Patient Condition Mental Status/LOC: Same as Preop Cardiovascular: Satisfactory Nausea/Vomiting: Absent Respiratory: Satisfactory Pain: Controlled Complications: Absent Post Op Complications Complications None Follow Up Care/Instructions Patient Instructions None needed. Anesthesiology Discharge Order Discharge Order Patient is doing well, no complaints, stable vital signs, no apparent adverse anesthesia problems. No complications reported per nursing. MATTHEW RICHMOND CRNA Sep 11, 2019 08:40
[2019-09-11] MEDS ORDERED: morphine INJ 10 MG/ML 1ML (SYR OR VIAL) IVP ONE (08:45)
[2019-09-11] MEDS ORDERED: ONDANSETRON 4 MG/2 ML (SDV) Z0FRAN IVP PRN (08:45)
--- NOTE | 2019-09-11 10:15 | NUR ---
PATIENT COMPLAINS OF PAIN OF 7-8 AT THIS TIME. THIS RN PHONED DR. GARCIA AND RECEIVED TELEPHONE ORDER FOR 2-4MG MORPHINE IV X1.
[2019-09-11] MEDS ORDERED: morphine INJ 10 MG/ML 1ML (SYR OR VIAL) IVP STA (10:19)
--- NOTE | 2019-09-11 12:58 | OPERATIVE REPORT ---
DATE OF SERVICE: PREOPERATIVE DIAGNOSIS: Dysphagia secondary to radiation for neck cancer. POSTOPERATIVE DIAGNOSES: Dysphagia secondary to radiation for neck cancer. Esophageal ulcers. PROCEDURE: Esophagogastroduodenoscopy. SURGEON: Isra Umana DO BROADCAST OPERATIONS TECHNICIAN: Sergio Cabrera DO. ANESTHESIA: General MAC. SPECIMENS: None. BLOOD LOSS: None. FLUIDS: Per anesthesia. POSTOPERATIVE CONDITION: Stable. INDICATION FOR PROCEDURE: The patient is a 44-year-old male who has had unfortunately neck cancer, has been having some dysphagia secondary to radiation. FINDINGS: The patient had some esophageal ulcers and he had a PEG tube placed by Dr. Cabrera. PROCEDURE NOTE: After informed consent was obtained, the patient was brought to the operating room, placed on the table in supine position. He was sedated and then placed the EGD scope down the mouth through the esophagus into the stomach. On the way down, noted some ulcerations, actually at the vocal cords as well as in the upper portion of the esophagus, able to push past into the stomach, insufflated the stomach to a maximum insufflation and then Dr. Cabrera began his part of the procedure. Placed a needle into the stomach, I was able to visualize this, grasped the catheter with a snare and then hold it in place and then he advanced a guidewire and then I grabbed the guidewire and pulled this guidewire out all the way. I then hooked this guidewire up to the PEG tube and then he pulled the PEG tube down the esophagus, I followed this down with the EGD scope and watched it enter the stomach and then he pulled it tight, could still turn little bit and at this point, suctioned all the air out of the stomach and pulled the scope up the esophagus, took another picture of the upper portion of the esophagus of the ulcers and then pulled the scope out. The patient tolerated the procedure. Job ID: [id number] DocumentID: [id number] Dictated Date: 09/11/2019 08:32:48 Teletypesetter Operator Date: 09/11/2019 12:57:13 Dictated By: ISRA UMANA DO
--- NOTE | 2019-09-11 13:26 | OPERATIVE REPORT ---
DATE OF SERVICE: 09/11/2019 PREOPERATIVE DIAGNOSES: Weight loss, dysphagia, head and neck cancer. POSTOPERATIVE DIAGNOSES: Weight loss, dysphagia, head and neck cancer. PROCEDURE: Gastrostomy tube placement as well EGD. SURGEON: Isra Umana DO ANESTHESIA: MAC with local. ESTIMATED BLOOD LOSS: Minimal. COMPLICATIONS: None. INDICATIONS: The patient is a 44-year-old male undergoing chemo and radiation for head and neck cancer. He has had weight loss and dysphagia, unable to keep any oral intake. The patient was discussed risks and benefits of having EGD and gastrostomy tube placement. He understands the risks and benefits and wishes to proceed. Consent was signed in the chart. DESCRIPTION OF PROCEDURE: The patient was taken to the operating suite. EGD was performed insufflating the stomach when ballottable portion of the abdomen was visualized through the stomach. This area was prepped and draped in a sterile fashion. Local anesthetic was infiltrated and a 11 blade scalpel was used to make a small incision and an Angiocath needle and catheter were inserted through the abdominal wall into the stomach and the wire was inserted, which was then snared by Dr. Umana and retracted the gastrostomy tube that was attached to this. This was then pulled out through the incision, placing the gastrostomy tube in place in the body of the stomach. The gastrostomy tube was then secured in the usual fashion, cut to length and the feeding cap was inserted onto the tube and closed. The patient tolerated procedure well without any complications. He was taken to recovery room in stable condition, but the patient was found to have some slight ulcerations. He was started on Carafate 1 gram four times a day to have it made into a slurry. Job ID: [id number] DocumentID: [id number] Dictated Date: 09/11/2019 08:43:51 Transport Analyst Date: 09/11/2019 13:26:04 Dictated By: SARAH GARCIA DO
[2019-09-15] MEDS ORDERED: ONDA8TAB13 PO (09:39)
[2019-09-15] MEDS ORDERED: PROM25TA14 PO (09:39)
[2019-09-15] MEDS ORDERED: SUCR1TAB PO (09:39)
== END 2019-09-11 11:30 | disposition home or self-care (01) ==
LOC: SDC 06:28
PROVIDERS: ATTEND Surgery
DX: C76.0 Malignant neoplasm of head, face and neck (principal); R13.10 Dysphagia, unspecified; F17.200 Nicotine dependence, unspecified, uncomplicated; E11.9 Type 2 diabetes mellitus without complications; K22.10 Ulcer of esophagus without bleeding; Z79.4 Long term (current) use of insulin; Z20.828 Contact with and (suspected) exposure to other viral communicable diseases
CPT/HCPCS: 43246; 87081; U0002; 87635

== ENCOUNTER 2019-09-13 14:13 | Emergency (ER) | payer BC ==
[~2019-09-13] VITALS: Ht 185.5 cm; Wt 114.8 kg
[~2019-09-13 14:13] MED LIST changes: +SUCR1TAB36 PO
[2019-09-13] MEDS ORDERED: KETOROLAC 30 MG/ML VIAL IVP ONE (14:45)
[2019-09-13] MEDS ORDERED: PROMETHAZINE INJ 25 MG/ML (PHENERGAN) AMP IVP ONE (14:45)
[2019-09-13] MEDS ORDERED: NS IV 1000 ML 1,000 ML IV SCH ×2 (14:45→16:15)
--- NOTE | 2019-09-13 14:48 | ED General ---
General Stated Complaint: VOMITING;WEIGHT LOSS Source of Information: Patient Exam Limitations: No Limitations History of Present Illness Date Seen by Provider: Sep 13, 2019 Time Seen by Provider: 14:47 Initial Comments To ER with vomiting, weight loss, dark urine. Referred here from the cancer center. He has completed chemotherapy and radiation for the cancer of the right side of his neck. Because of dysphagia he was given a gastric tube placed 2 days ago. Timing/Duration: 1-2 Days Severity: Moderate Modifying Factors: improves with Rest Associated Systoms: Loss of Appetite, Malaise, Nausea/Vomiting Allergies and Home Medications Allergies Coded Allergies: No Known Drug Allergies (Unverified , 09/11/19) Home Medications Empagliflozin 10 Mg Tablet, 10 MG PO DAILY, (Reported) Metformin HCl 500 Mg Tablet, 500 MG PO BID, (Reported) Ondansetron 8 Mg Tab.rapdis, 8 MG PO Q6H PRN for NAUSEA/VOMITING Prescribed by: CHRISTIAN HARVEY on 09/13/19 1155 Sucralfate 1 Gm Tablet, 1 GM PO QID make into slurry then take Prescribed by: SARAH GARCIA on 09/11/19 0832 Patient Home Medication List Home Medication List Reviewed: Yes Review of Systems Review of Systems Constitutional: see HPI EENTM: see HPI Respiratory: no symptoms reported Cardiovascular: no symptoms reported Gastrointestinal: nausea, vomiting Genitourinary: no symptoms reported Musculoskeletal: no symptoms reported Skin: no symptoms reported Psychiatric/Neurological: No Symptoms Reported Hematologic/Lymphatic: No Symptoms Reported Immunological/Allergic: no symptoms reported Past Wpwnqtm-Jedgoo-Pofdjn Hx Patient Social History Type Used: Cigarettes Former Smoker, Quit: Apr 13, 2019 2nd Hand Smoke Exposure: Yes Recent Hopitalizations: No Seasonal Allergies Seasonal Allergies: No Past Medical History Surgeries: Yes (I&D ARM-MRSA, bx of neck mass) Tonsillectomy Respiratory: No Cardiac: No Neurological: No Sexually Transmitted Disease: No HIV/AIDS: No Genitourinary: No Gastrointestinal: No Musculoskeletal: No Endocrine: Yes Diabetes, Non-Insulin dep HEENT: Yes (CONTACTS) Loss of Vision: Denies Hearing Impairment: Denies Cancer: Yes (tonsil) What Type of Treatment Did You: Chemotherapy, Radiation, Surgical Intervention Psychosocial: No Integumentary: No Blood Disorders: No Adverse Reaction/Blood Tranf: No (N/A) Physical Exam Vital Signs Vital Signs - First Documented 09/13/19 14:30 Temp 36.9 Pulse 110 Resp 18 B/P (MAP) 152/97 (115) Pulse Ox 97 O2 Delivery Room Air Capillary Refill : Height, Weight, BMI Height: '" Weight: lbs. oz. kg; 33.21 BMI Method: General Appearance: No Apparent Distress, WD/WN, Obese Eyes: Bilateral Eye Normal Inspection, Bilateral Eye PERRL, Bilateral Eye EOMI Neck: Full Range of Motion, Normal Inspection Respiratory: No Accessory Muscle Use, No Respiratory Distress Cardiovascular: Regular Rate, Rhythm, Normal Peripheral Pulses Gastrointestinal: Normal Bowel Sounds, Non Tender, Soft Extremity: Normal Capillary Refill, Normal Inspection Neurologic/Psychiatric: Alert, Oriented x3 Skin: Normal Color, Warm/Dry Progress/Results/Core Measures Suspected Sepsis SIRS Temperature: Pulse: Respiratory Rate: Laboratory Tests 09/13/19 14:45: White Blood Count 3.9L Blood Pressure / Mean: Laboratory Tests 09/13/19 14:45: Creatinine 1.27, Platelet Count 123L, Total Bilirubin 0.6 Results/Orders Lab Results Laboratory Tests Test 09/13/19 14:45 Range/Units White Blood Count 3.9 L 4.3-11.0 10^3/uL Red Blood Count 4.37 4.35-5.85 10^6/uL Hemoglobin 13.4 13.3-17.7 G/DL Hematocrit 38 L 40-54 % Mean Corpuscular Volume 86 80-99 FL Mean Corpuscular Hemoglobin 31 25-34 PG Mean Corpuscular Hemoglobin Concent 36 32-36 G/DL Red Cell Distribution Width 16.3 H 10.0-14.5 % Platelet Count 123 L 130-400 10^3/uL Mean Platelet Volume 9.9 7.4-10.4 FL Neutrophils (%) (Auto) 52 42-75 % Lymphocytes (%) (Auto) 33 12-44 % Monocytes (%) (Auto) 15 H 0-12 % Eosinophils (%) (Auto) 1 0-10 % Basophils (%) (Auto) 0 0-10 % Neutrophils # (Auto) 2.0 1.8-7.8 X 10^3 Lymphocytes # (Auto) 1.3 1.0-4.0 X 10^3 Monocytes # (Auto) 0.6 0.0-1.0 X 10^3 Eosinophils # (Auto) 0.0 0.0-0.3 10^3/uL Basophils # (Auto) 0.0 0.0-0.1 10^3/uL Sodium Level 140 135-145 MMOL/L Potassium Level 3.1 L 3.6-5.0 MMOL/L Chloride Level 101 98-107 MMOL/L Carbon Dioxide Level 19 L 21-32 MMOL/L Anion Gap 20 H 5-14 MMOL/L Blood Urea Nitrogen 12 7-18 MG/DL Creatinine 1.27 0.60-1.30 MG/DL Estimat Glomerular Filtration Rate > 60 BUN/Creatinine Ratio 9 Glucose Level 124 H 70-105 MG/DL Calcium Level 9.7 8.5-10.1 MG/DL Corrected Calcium 9.5 8.5-10.1 MG/DL Total Bilirubin 0.6 0.1-1.0 MG/DL Aspartate Amino Transf (AST/SGOT) 20 5-34 U/L Alanine Aminotransferase (ALT/SGPT) 31 0-55 U/L Alkaline Phosphatase 102 40-136 U/L Total Protein 7.5 6.4-8.2 GM/DL Albumin 4.2 3.2-4.5 GM/DL My Orders Orders - CHRISTIAN HARVEY APRN Cbc With Automated Diff (09/13/19 14:34) Comprehensive Metabolic Panel (09/13/19 14:34) Urinalysis (09/13/19 14:34) Ed Iv/Invasive Line Start (09/13/19 14:34) Ketorolac Injection (Toradol Injection) (09/13/19 14:45) Ns Iv 1000 Ml (Sodium Chloride 0.9%) (09/13/19 14:45) Promethazine Injection (Phenergan Injec (09/13/19 14:45) Potassium Cl 10meq/50ml Ivpb (Kcl 10 Meq (09/13/19 15:45) Ns Iv 1000 Ml (Sodium Chloride 0.9%) (09/13/19 16:15) Medications Given in ED Current Medications Medications Dose Ordered Sig/Cris Route Start Time Stop Time Status Last Admin Dose Admin Ketorolac Tromethamine 15 mg ONCE ONCE IVP 09/13/19 14:45 09/13/19 14:46 DC 09/13/19 14:55 15 MG Potassium Chloride 50 ml @ 50 mls/hr ONCE ONCE IV 09/13/19 15:45 09/13/19 16:44 DC 09/13/19 15:50 50 MLS/HR Promethazine HCl 25 mg ONCE ONCE IVP 09/13/19 14:45 09/13/19 14:46 DC 09/13/19 14:55 25 MG Vital Signs/I&O 09/13/19 14:30 Temp 36.9 Pulse 110 Resp 18 B/P (MAP) 152/97 (115) Pulse Ox 97 O2 Delivery Room Air Capillary Refill : Departure Communication (Admissions) 1813- feeling better at this time, sleeping, no nausea. I'll give him a prescription for Phenergan pills. Labs are unremarkable. He can use these pills crushed up through the gastric tube. Impression Primary Impression: Dysphagia Additional Impressions: Cancer of neck Nausea and vomiting Disposition: 01 HOME, SELF-CARE Condition: Stable Departure-Patient Inst. Decision time for Depature: 17:44 Referrals: MARCELLA MANCERA MD (PCP/Family) Primary Care Physician Patient Instructions: Dehydration, Adult (DC) Scripts Promethazine HCl (Promethazine Tablet) 25 Mg Tablet 25 MG PO Q6H PRN for NAUSEA/VOMITING, #14 TAB Prov: CHRISTIAN HARVEY HOUSEKEEPER 09/13/19 Ondansetron (Ondansetron Odt) 8 Mg Tab.rapdis 8 MG PO Q6H PRN for NAUSEA/VOMITING, #14 TAB Prov: CHRISTIAN HARVEY APRN 09/13/19 CHRISTIAN HARVEY HOUSEKEEPER Sep 13, 2019 14:48
[2019-09-13 15:25] LABS: BASOPHILS % (AUTO) 0 % (0-10); EOSINOPHILS % (AUTO) 1 % (0-10); HEMATOCRIT 38 % (40-54); HEMOGLOBIN 13.4 G/DL (13.3-17.7); LYMPHOCYTES # (AUTO) 1.3 X 10^3 (1.0-4.0); LYMPHOCYTES % (AUTO) 33 % (12-44); MEAN CORPUSCULAR HEMOGLOBIN 31 PG (25-34); MEAN CORPUSCULAR HGB CONC 36 G/DL (32-36); MEAN CORPUSCULAR VOLUME 86 FL (80-99); MEAN PLATELET VOLUME 9.9 FL (7.4-10.4); MONOCYTES # (AUTO) 0.6 X 10^3 (0.0-1.0); MONOCYTES % (AUTO) 15 % (0-12); NEUTROPHILS % (AUTO) 52 % (42-75); PLATELET COUNT 123 10^3/uL (130-400); RED CELL DISTRIBUTION WIDTH 16.3 % (10.0-14.5); WHITE BLOOD COUNT 3.9 10^3/uL (4.3-11.0)
[2019-09-13 15:29] LABS: ALBUMIN 4.2 GM/DL (3.2-4.5)
[2019-09-13 15:30] LABS: CHLORIDE 101 MMOL/L (98-107); POTASSIUM 3.1 MMOL/L (3.6-5.0); SODIUM 140 MMOL/L (135-145)
[2019-09-13 15:31] LABS: CALCIUM 9.7 MG/DL (8.5-10.1)
[2019-09-13 15:32] LABS: GLUCOSE 124 MG/DL (70-105); TOTAL PROTEIN 7.5 GM/DL (6.4-8.2)
[2019-09-13 15:33] LABS: CARBON DIOXIDE 19 MMOL/L (21-32)
[2019-09-13 15:34] LABS: BILIRUBIN,TOTAL 0.6 MG/DL (0.1-1.0)
[2019-09-13 15:35] LABS: ALKALINE PHOSPHATASE 102 U/L (40-136); CREATININE SERUM 1.27 MG/DL (0.60-1.30); GFR ESTIMATED > 60
[2019-09-13 15:36] LABS: BUN/CREATININE RATIO 9
[2019-09-13 15:38] LABS: ALANINE AMINOTRANSFERASE 31 U/L (0-55)
[2019-09-13] MEDS ORDERED: POTASSIUM CL 10MEQ/50ML IVPB 50 ML IV ONE (15:45)
--- OUTSIDE RECORDS SUMMARY | 2019-09-13 16:24 | XMS REPORT | Continuity of Care Document ---
Demographics Preferred Language Unknown Marital Status Unknown Ep[employer]opalian Affiliation Unknown Race Unknown Ethnic Group Unknown Author Organization Unknown Address Unknown Phone Unavailable Allergies Active Description Code Type Severity Reaction Onset Reported/Identified Relationship to Patient Clinical Status Yes No Allergy Information Available [id number] Drug Allergy Unknown N/A 020 Yes No Known Drug Allergies [id number] Drug Allergy Unknown N/A 09/11/2019 Medications There is no data. Problems Date Dx Coded Attending Type Code Diagnosis Diagnosed By BRIEN PETERS MD Ot C79.89 SECONDARY MALIGNANT NEOPLASM OF OTHER SP BRIEN PETERS MD Ot C80.1 MALIGNANT (PRIMARY) NEOPLASM, UNSPECIFIE BRIEN PETERS MD Ot F17.210 NICOTINE DEPENDENCE, CIGARETTES, UNCOMPL 01/14/1207 GARCIASARAH PURI DO Ot Z01.818 ENCOUNTER FOR OTHER PREPROCEDURAL EXAMIN 01/15/1512 SARAH GARCIA DO Ot C34. 90 MALIGNANT NEOPLASM OF UNSP PART OF UNSP 01/15/1512 SARAH GARCIA DO Ot C80. 1 MALIGNANT (PRIMARY) NEOPLASM, UNSPECIFIE 01/15/1512 GARCIA SARAH CHILDERS Ot R22. 1 LOCALIZED SWELLING, MASS AND LUMP, NECK 01/15/1512 HOMEWORTH SARAH CHILDERS Ot Z01.812 ENCOUNTER FOR PREPROCEDURAL LABORATORY E 01/15/1512 HOMEWORTH SARAH CHILDERS Ot Z01.818 ENCOUNTER FOR OTHER [...] FOR OTHER PREPROCEDURAL EXAMIN 04/19/2019 PHILIPPE CASTANEDA MD, Ot Z01.818 ENCOUNTER FOR OTHER PREPROCEDURAL EXAMIN [...] NEOPLASM OF OTHER SP 05/02/2019 PHILIPPE CASTANEDA MD, Ot C80 .1 MALIGNANT (PRIMARY) NEOPLASM, UNSPECIFIE 05/02/2019 PHILIPPE CASTANEDA MD Ot F17.210 NICOTINE DEPENDENCE, CIGARETTES, UNCOMPL 05/02/2019 PHILIPPE CASTANEDA MD Ot Z11 .2 ENCOUNTER FOR SCREENING FOR OTHER BACTER 05/02/2019 PHILIPPE CASTANEDA MD Ot Z86.14 PERSONAL HISTORY OF METHICILLIN RESIS ST 06/06/2019 JAYLYN GANDHI REPEAT CHIEF Ot R59 .0 LOCALIZED ENLARGED LYMPH NODES [...] 06/21/2019 SARAH GARCIA DO Ot Z79. 01 BIOPHYSICS PROFESSOR (CURRENT) USE OF ANTICOAGULANT 06/21/2019 SARAH GARCIA DO Ot Z79. 84 FDC (CURRENT) USE OF ORAL HYPOGLYC 06/21/2019 HOMEWORTH DO, SARAH D Ot Z79.891 FDC (CURRENT) USE OF OPIATE ANALGE 06/21/2019 HOMEWORTH DO, SARAH D Ot Z79.899 OTHER BIOPHYSICS PROFESSOR (CURRENT) DRUG THERAPY 06/21/2019 HOMEWORTH DO, SARAH D Ot Z80. 9 FAMILY HISTORY OF MALIGNANT NEOPLASM, UN 06/21/2019 HOMEWORTH DO, SARAH D Ot Z82. 49 FAMILY HX OF ISCHEM HEART DIS AND OTH DI 06/21/2019 GARCIA DO, SARAH D Ot Z87.891 PERSONAL HISTORY OF NICOTINE DEPENDENCE 06/21/2019 GARCIA DO, SARAH D Ot Z90. 89 ACQUIRED ABSENCE OF OTHER ORGANS 06/23/2019 HOMEWORTH DO, SARAH D Ot C76. 0 MALIGNANT NEOPLASM OF HEAD, FACE AND NEC 06/23/2019 HOMEWORTH DO, SARAH D Ot E11. 9 TYPE 2 DIABETES MELLITUS WITHOUT COMPLIC 06/23/2019 HOMEWORTH DO, SARAH D Ot E66. 9 OBESITY, UNSPECIFIED 06/23/2019 HOMEWORTH DO, SARAH D Ot Z79. 01 BIOPHYSICS PROFESSOR (CURRENT) USE OF ANTICOAGULANT 06/23/2019 HOMEWORTH DO, SARAH D Ot Z79. 84 FDC (CURRENT) USE OF ORAL HYPOGLYC 06/23/2019 HOMEWORTH DO, SARAH D Ot Z79.891 BIOPHYSICS PROFESSOR (CURRENT) USE OF OPIATE ANALGE 06/23/2019 HOMEWORTH DO, SARAH D Ot Z79.899 OTHER FDC (CURRENT) DRUG THERAPY 06/23/2019 HOMEWORTH DO, SARAH D Ot Z80. 9 FAMILY HISTORY OF MALIGNANT NEOPLASM, UN 06/23/2019 HOMEWORTH DO, SARAH D Ot Z82. 49 FAMILY [...] D Ot E66. 9 OBESITY, UNSPECIFIED 06/23/2019 [facility], SARAH Yanez Ot Z79. 01 FDC (CURRENT) USE OF ANTICOAGULANT 06/23/[facility] Z79. 84 BIOPHYSICS PROFESSOR (CURRENT) USE OF ORAL HYPOGLYC 06/23/2019 [facility], SARAH Yanez Ot Z79.891 BIOPHYSICS PROFESSOR (CURRENT) USE OF OPIATE ANALGE 06/23/[facility] Ot Z79.899 OTHER FDC (CURRENT) DRUG THERAPY 06/23/2019 [facility], SARAH Beau Ot Z80. 9 FAMILY HISTORY OF MALIGNANT NEOPLASM, UN 06/23/2019 HOMEWORTH DO, SARAH D Ot Z82. 49 FAMILY HX OF ISCHEM HEART DIS AND OTH DI 06/23/[facility] Ot Z87.891 PERSONAL HISTORY OF NICOTINE DEPENDENCE 06/23/[facility] Ot Z90. 89 ACQUIRED ABSENCE OF OTHER ORGANS 06/26/[facility] Ot C76. 0 MALIGNANT NEOPLASM OF HEAD, FACE AND NEC 06/26/[facility] Beau Ot E11. 9 TYPE 2 DIABETES MELLITUS WITHOUT COMPLIC 06/26/2019 [facility] Ot E66. 9 OBESITY, UNSPECIFIED 06/26/[facility] Ot Z79. 01 FDC (CURRENT) USE OF ANTICOAGULANT 06/26/[facility] Ot Z79. 84 FDC (CURRENT) USE OF ORAL HYPOGLYC 06/26/[facility] Ot Z79.891 BIOPHYSICS PROFESSOR (CURRENT) USE OF OPIATE ANALGE 06/26/[facility] Ot Z79.899 OTHER FDC (CURRENT) DRUG THERAPY 06/26/2019 [facility], SARAH Beau Ot Z80. 9 FAMILY HISTORY OF MALIGNANT NEOPLASM, UN 06/26/2019 HOMEWORTH DO, SARAH Beau Ot Z82. 49 FAMILY HX OF ISCHEM HEART DIS AND OTH DI 06/26/2019 HOMEWORTH DOAUGUSTINATT Beau Ot Z87.891 PERSONAL HISTORY OF NICOTINE DEPENDENCE 06/26/2019 HOMEWORTH DOAUGUSTINATT D Ot Z90. 89 ACQUIRED ABSENCE OF OTHER ORGANS 06/27/2019 GARCIA DOAUGUSTINATT Beau Ot C76. 0 MALIGNANT NEOPLASM OF HEAD, FACE AND NEC 06/27/[facility] Ot E11. 9 TYPE 2 DIABETES MELLITUS WITHOUT COMPLIC 06/27/2019 [facility] Ot E66. 9 OBESITY, UNSPECIFIED 06/27/[facility] Ot Z79. 01 BIOPHYSICS PROFESSOR (CURRENT) USE OF ANTICOAGULANT 06/27/[facility] Ot Z79. 84 BIOPHYSICS PROFESSOR (CURRENT) USE OF ORAL HYPOGLYC 06/27/[facility] Ot Z79.891 BIOPHYSICS PROFESSOR (CURRENT) USE OF OPIATE ANALGE 06/27/[facility] Ot Z79.899 OTHER FDC (CURRENT) DRUG THERAPY 06/27/[facility] Ot Z80. 9 FAMILY HISTORY OF MALIGNANT NEOPLASM, UN 06/27/[facility] Ot Z82. 49 FAMILY HX OF ISCHEM HEART DIS AND OTH DI 06/27/[facility] Ot Z87.891 PERSONAL HISTORY OF NICOTINE DEPENDENCE 06/27/2019 [facility] Ot Z90. 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 [place] 110 mL/min/1.73m2 > OR = 60 eGFR [...] RANDOM URINE W/CREAT NRG TEST CODE: [id number] NR CLIENT CONTACT: DAISY SORENSEN NR REPORT ALWAYS MESSAGE SIGNATURE NRG COMMENT NRG Coronavirus SARS-CoV-2 SO 2019 - 0 13:30 Coronavirus Ab [Units/volume] in Serum Negative Negative Capillary blood glucose measurement by g lucometer (mass/volume) - 06/21/19 07:04 Capillary blood glucose measurement by glucometer (mas s/volume) 124 mg/dL 70-110 Methicillin resistant Staphylococcus aur eus (MRSA) screening culture - 06/21/19 07:14 Methicillin resistant Staphylococcus aureus (MRSA) scr eening culture NEG NRG Methicillin resistant Staphylococcus aur eus (MRSA) screening culture - 09/11/19 06:45 Methicillin resistant Staphylococcus aureus (MRSA) scr eening culture NEG NRG Comprehensive metabolic panel - 09/13/19 14:45 Serum or plasma sodium measurement (moles/volume) 140 mmol/L 135-145 Serum or plasma potassium measurement (moles/volume) 3.1 mmol/L 3.6-5.0 Serum or plasma chloride measurement (moles/volume) 101 mmol/L 98-107 Carbon dioxide 19 mmol/L 21-32 Serum or plasma anion gap determination (moles/volume) 20 mmol/L 5-14 Serum or plasma urea nitrogen measurement (mass/volume ) 12 mg/dL 7-18 Serum or plasma creatinine measurement (mass/volume) 1.27 mg/dL 0.60-1.30 Serum or plasma urea nitrogen/creatinine mass ratio 9 NRG Serum or plasma creatinine measurement w ith calculation of estimated glomerular filtration rate > NRG Serum or plasma glucose measurement (mass/volume) 124 mg/dL 70-105 Serum or plasma calcium measurement (mass/volume) 9.7 mg/dL 8.5-10.1 Serum or plasma total bilirubin measurement (mass/volu me) 0.6 mg/dL 0.1-1.0 Serum or plasma alkaline phosphatase rebeca surement (enzymatic activity/volume) 102 U/L 40-136 Serum or plasma aspartate aminotransfera se measurement (enzymatic activity/volume) 20 U/L 5-34 Serum or plasma alanine aminotransferase measurement (enzymatic activity/volume) 31 U/L 0-55 Serum or plasma protein measurement (mass/volume) 7.5 g/dL 6.4-8.2 Serum or plasma albumin measurement (mass/volume) 4.2 g/dL 3.2-4.5 CALCIUM CORRECTED 9.5 mg/dL 8.5-10.1 Complete blood count (CBC) with automate d white blood cell (WBC) differential - 09/13/19 14:45 Blood leukocytes automated count (number/volume) 3.9 10*3/uL 4.3-11.0 Blood erythrocytes automated count (number/volume) 4.37 10*6/uL 4.35-5.85 Venous blood hemoglobin measurement (mass/volume) 13.4 g/dL 13.3-17.7 Blood hematocrit (volume fraction) 38 % 40-54 Automated erythrocyte mean corpuscular volume 86 [ foz_us] 80-99 Automated erythrocyte mean corpuscular h emoglobin (mass per erythrocyte) 31 pg 25-34 Automated erythrocyte mean corpuscular h emoglobin concentration measurement (mass/volume) 36 g/dL 32-36 Automated erythrocyte distribution width ratio 16. 3 % 10.0- 14.5 Automated blood platelet count (count/volume) 123 10*3/uL 130-400 Automated blood platelet mean volume measurement 9.9 [foz_us] 7.4-10.4 Automated blood neutrophils/100 leukocytes 52 % 42-75 Automated blood lymphocytes/100 leukocytes 33 % 12-44 Blood monocytes/100 leukocytes 15 % 0-12 Automated blood eosinophils/100 leukocytes 1 % 0-10 Automated blood basophils/100 leukocytes 0 % 0-10 Blood neutrophils automated count (number/volume) 2.0 10*3 1.8-7.8 Blood lymphocytes automated count (number/volume) 1.3 10*3 1.0-4.0 Blood monocytes automated count (number/volume) 0. 6 10*3 0.0-1.0 Automated eosinophil count 0.0 10*3/uL 0 .0-0.3 Automated blood basophil count (count/volume) 0.0 10*3/uL 0.0-0.1 Encounters ACCT No. Visit Date/Time Discharge Status Pt. Type Provider Facility Loc./Unit Complaint [id number] 05/17/2019 11:00:00 Document Registration [id number] 09/11/2019 06:28:00 11:30:00 [facility] [id number] 09/08/2019 10:27:00 12:08:00 DIS Outpatient GARCIA SARAH CHILDERS [facility] PREOP DYSPHAGIA,HEAD AND NECK CA [id number] 08/09/2019 09:41:00 12:58:00 DIS Outpatient VIDAL WILSON [facility] ONC [id number] 06/27/2019 14:23:00 09:10:00 DIS Outpatient BRIEN PETERS MD, [facility] ONC [id number] 06/21/2019 06:27:00 10:05:00 DIS Outpatient GARCIA SARAH CHILDERS [facility] SDC HIGH GRADE POORLY DIFFE RENTIATED CARCINOMA [id number] 06/16/2019 09:20:00 15:13:00 DIS Outpatient SARAH GARCIA DO [facility] PREOP HIGH GRADE POORLY DIFFE RENTIATED CARCINOMA [id number] 04/20/2019 06:49:00 12:43:00 DIS Outpatient PHILIPPE CASTANEDA MD [facility] SDC RIGHT NECK MASS [id number] 04/18/2019 05:50:00 15:27:00 DIS Outpatient PHILIPPE CASTANEDA MD [facility] PREOP RIGHT NECK MASS [id number] 04/13/2019 07:34:00 23:59:59 CLS Outpatient PHILIPPE CASTANEDA MD [facility] RAD RT NECK MALIGNANT CELL [id number] 03/27/2019 14:27:00 23:59:59 CLS Outpatient PHILIPPE CASTANEDA MD [facility] RAD RT NECK MASS [id number] 03/08/2019 13:02:00 23:59:59 CLS Outpatient JAYLYN GANDHI APRN [facility] RAD R ANTERIOR CERVICAL LYM PHADENOPATHY [id number] 09/13/2019 15:30:00 Document Registration [id number] 09/11/2019 14:31:[address] Outpatient ORTEGA NUÑEZ MD [facility] ONC
[2019-09-13] MEDS ORDERED: ONDA8TAB13 PO (17:45)
[2019-09-13] MEDS ORDERED: PROM25TA14 PO (18:15)
[2019-09-13 18:39] VITALS: BP 132/79
[2019-09-15] MEDS ORDERED: ONDA8TAB13 PO (09:39)
[2019-09-15] MEDS ORDERED: SUCR1TAB PO (09:39)
[2019-09-15] MEDS ORDERED: PROM25TA14 PO (09:39)
== END 2019-09-13 18:39 | disposition home or self-care (01) ==
LOC: EDUNIT# 14:13 → ER 14:13
DX: R13.10 Dysphagia, unspecified (principal); C76.0 Malignant neoplasm of head, face and neck; R11.2 Nausea with vomiting, unspecified; E11.9 Type 2 diabetes mellitus without complications; Z79.84 Long term (current) use of oral hypoglycemic drugs; Z87.891 Personal history of nicotine dependence; Z77.22 Contact with and (suspected) exposure to environmental tobacco smoke (acute) (chronic); Z93.1 Gastrostomy status
CPT/HCPCS: 36415; 80053; 85025

== ENCOUNTER → 2019-10-16 | Outpatient (CLI) | payer BC ==
[~2019-10-16] MED LIST changes: +HOLD METFORMIN - RECEIVED CONTRAST 20 ML VIAL IV SCH; +IOHEXOL 350 MG/ML 100 ML (OMNIPAQUE 350) VIAL IV ONE; +METO-310 PO; +NS 100 ML (IVPB) BAG IV ONE; +ONDA8TAB13 PO; +PANT40TA2 PO; +PROM25TA14 PO; +SUCR1TAB PO
--- NOTE | 2019-10-16 09:32 | Diagnostic Imaging Report ---
INDICATION: Head and neck cancer. TECHNIQUE: Multiple continuous axial images were obtained through the neck and chest after the uneventful bolus administration of intravenous contrast Comparison made with prior examination of 03/27/2019. FINDINGS: There is a persistent solid mass in the right neck just anterior to sternocleidomastoid muscle. This has markedly decreased in size however now measuring 1.6 x 1.9 x 3.6 cm. The parotid glands remain normal in appearance. Submandibular glands are unremarkable. Thyroid glands normal in appearance. Lung apices are clear. Major vascular structures of the neck enhance in a normal fashion. Prevertebral soft tissues are within normal limits. Epiglottis is unremarkable. There is some cervical spondylosis. There is no other new dominant mass or adenopathy in the neck. The sinuses and mastoid air cells are clear. There are no discrete pulmonary nodules, masses or infiltrates. There is no pleural or pericardial fluid. There is no pneumothorax. There is no pathologically enlarged adenopathy in the chest. Thoracic aorta is normal in caliber. The heart size is normal. There is some fatty infiltration liver. Remainder of the intra-abdominal structures are unremarkable. IMPRESSION: Persistent solid mass in the right neck anterior to sternocleidomastoid muscle. This has decreased significantly in size when compared to prior examination. Unremarkable CT chest. Fatty infiltration of the liver. Dictated by: Dictated on workstation # [id number]
== END ==
LOC: RAD 08:07
PROVIDERS: ATTEND Internal Medicine Hematology & Oncology
DX: C49.0 Malignant neoplasm of connective and soft tissue of head, face and neck (principal); Z20.828 Contact with and (suspected) exposure to other viral communicable diseases
CPT/HCPCS: 70491; 71260

== ENCOUNTER 2019-10-20 10:16 | Outpatient (RCR) | payer BC ==
[2019-08-23 13:23] LABS: BASOPHILS % (AUTO) 0 % (0-10); EOSINOPHILS # (AUTO) 0.1 10^3/uL (0.0-0.3); EOSINOPHILS % (AUTO) 1 % (0-10); HEMATOCRIT 43 % (40-54); HEMOGLOBIN 14.6 G/DL (13.3-17.7); LYMPHOCYTES # (AUTO) 0.8 X 10^3 (1.0-4.0); LYMPHOCYTES % (AUTO) 13 % (12-44); MEAN CORPUSCULAR HEMOGLOBIN 30 PG (25-34); MEAN CORPUSCULAR HGB CONC 34 G/DL (32-36); MEAN CORPUSCULAR VOLUME 89 FL (80-99); MEAN PLATELET VOLUME 10.1 FL (7.4-10.4); MONOCYTES # (AUTO) 0.8 X 10^3 (0.0-1.0); MONOCYTES % (AUTO) 13 % (0-12); NEUTROPHILS # (AUTO) 4.7 X 10^3 (1.8-7.8); NEUTROPHILS % (AUTO) 74 % (42-75); PLATELET COUNT 158 10^3/uL (130-400); WHITE BLOOD COUNT 6.3 10^3/uL (4.3-11.0)
[2019-08-23 13:47] LABS: ALANINE AMINOTRANSFERASE 35 U/L (0-55); ALBUMIN 4.6 GM/DL (3.2-4.5); ALKALINE PHOSPHATASE 103 U/L (40-136); BILIRUBIN,TOTAL 0.5 MG/DL (0.1-1.0); BUN/CREATININE RATIO 15; CALCIUM 10.2 MG/DL (8.5-10.1); CARBON DIOXIDE 21 MMOL/L (21-32); CHLORIDE 102 MMOL/L (98-107); CREATININE SERUM 1.05 MG/DL (0.60-1.30); GFR ESTIMATED > 60; GLUCOSE 124 MG/DL (70-105); POTASSIUM 4.4 MMOL/L (3.6-5.0); SODIUM 137 MMOL/L (135-145); TOTAL PROTEIN 8.2 GM/DL (6.4-8.2)
[2019-08-30 13:13] LABS: BASOPHILS % (AUTO) 0 % (0-10); EOSINOPHILS % (AUTO) 1 % (0-10); HEMATOCRIT 40 % (40-54); HEMOGLOBIN 13.9 G/DL (13.3-17.7); LYMPHOCYTES # (AUTO) 0.7 X 10^3 (1.0-4.0); LYMPHOCYTES % (AUTO) 17 % (12-44); MEAN CORPUSCULAR HEMOGLOBIN 30 PG (25-34); MEAN CORPUSCULAR HGB CONC 35 G/DL (32-36); MEAN CORPUSCULAR VOLUME 87 FL (80-99); MEAN PLATELET VOLUME 9.3 FL (7.4-10.4); MONOCYTES # (AUTO) 0.7 X 10^3 (0.0-1.0); MONOCYTES % (AUTO) 17 % (0-12); NEUTROPHILS # (AUTO) 2.7 X 10^3 (1.8-7.8); NEUTROPHILS % (AUTO) 66 % (42-75); PLATELET COUNT 186 10^3/uL (130-400); WHITE BLOOD COUNT 4.2 10^3/uL (4.3-11.0)
[2019-08-30 13:28] LABS: BUN/CREATININE RATIO 15; CALCIUM 9.4 MG/DL (8.5-10.1); CARBON DIOXIDE 21 MMOL/L (21-32); CHLORIDE 103 MMOL/L (98-107); CREATININE SERUM 0.82 MG/DL (0.60-1.30); GFR ESTIMATED > 60; GLUCOSE 87 MG/DL (70-105); SODIUM 137 MMOL/L (135-145)
[2019-09-08 08:42] LABS: BASOPHILS % (AUTO) 0 % (0-10); EOSINOPHILS % (AUTO) 1 % (0-10); HEMATOCRIT 39 % (40-54); HEMOGLOBIN 13.6 G/DL (13.3-17.7); LYMPHOCYTES # (AUTO) 1.4 X 10^3 (1.0-4.0); LYMPHOCYTES % (AUTO) 33 % (12-44); MEAN CORPUSCULAR HEMOGLOBIN 30 PG (25-34); MEAN CORPUSCULAR HGB CONC 35 G/DL (32-36); MEAN CORPUSCULAR VOLUME 86 FL (80-99); MEAN PLATELET VOLUME 9.8 FL (7.4-10.4); MONOCYTES # (AUTO) 0.6 X 10^3 (0.0-1.0); MONOCYTES % (AUTO) 15 % (0-12); NEUTROPHILS # (AUTO) 2.2 X 10^3 (1.8-7.8); NEUTROPHILS % (AUTO) 52 % (42-75); PLATELET COUNT 120 10^3/uL (130-400); WHITE BLOOD COUNT 4.2 10^3/uL (4.3-11.0)
[2019-09-08 08:59] LABS: ALANINE AMINOTRANSFERASE 40 U/L (0-55); ALBUMIN 4.2 GM/DL (3.2-4.5); ALKALINE PHOSPHATASE 111 U/L (40-136); BILIRUBIN,TOTAL 0.5 MG/DL (0.1-1.0); BUN/CREATININE RATIO 9; CALCIUM 9.5 MG/DL (8.5-10.1); CARBON DIOXIDE 18 MMOL/L (21-32); CHLORIDE 102 MMOL/L (98-107); CREATININE SERUM 1.08 MG/DL (0.60-1.30); GFR ESTIMATED > 60; GLUCOSE 100 MG/DL (70-105); MAGNESIUM 1.6 MG/DL (1.6-2.4); POTASSIUM 3.8 MMOL/L (3.6-5.0); SODIUM 137 MMOL/L (135-145); TOTAL PROTEIN 7.7 GM/DL (6.4-8.2)
[~2019-10-20 10:16] MED LIST changes: +FOSAPREPITANT (CANCER CENTER) 150 MG in NS (IVPB) CANCER CENTER ONLY 150 ML IV SCH; -HOLD METFORMIN - RECEIVED CONTRAST 20 ML VIAL IV SCH; -IOHEXOL 350 MG/ML 100 ML (OMNIPAQUE 350) VIAL IV ONE; -NS 100 ML (IVPB) BAG IV ONE; +NS IV 1000 ML (CANCER CTR) IV SCH
[2019-10-20 10:47] LABS: BASOPHILS % (AUTO) 0 % (0-10); EOSINOPHILS # (AUTO) 0.1 10^3/uL (0.0-0.3); EOSINOPHILS % (AUTO) 2 % (0-10); HEMATOCRIT 36 % (40-54); HEMOGLOBIN 11.9 G/DL (13.3-17.7); LYMPHOCYTES # (AUTO) 1.5 X 10^3 (1.0-4.0); LYMPHOCYTES % (AUTO) 36 % (12-44); MEAN CORPUSCULAR HEMOGLOBIN 31 PG (25-34); MEAN CORPUSCULAR HGB CONC 33 G/DL (32-36); MEAN CORPUSCULAR VOLUME 94 FL (80-99); MEAN PLATELET VOLUME 10.3 FL (7.4-10.4); MONOCYTES # (AUTO) 0.5 X 10^3 (0.0-1.0); MONOCYTES % (AUTO) 13 % (0-12); NEUTROPHILS % (AUTO) 49 % (42-75); PLATELET COUNT 227 10^3/uL (130-400)
[2019-10-20 11:08] LABS: ALANINE AMINOTRANSFERASE 15 U/L (0-55); ALBUMIN 3.8 GM/DL (3.2-4.5); ALKALINE PHOSPHATASE 80 U/L (40-136); BILIRUBIN,TOTAL 0.7 MG/DL (0.1-1.0); BUN/CREATININE RATIO 6; CALCIUM 9.7 MG/DL (8.5-10.1); CARBON DIOXIDE 23 MMOL/L (21-32); CHLORIDE 106 MMOL/L (98-107); CREATININE SERUM 0.86 MG/DL (0.60-1.30); GFR ESTIMATED > 60; GLUCOSE 104 MG/DL (70-105); POTASSIUM 3.7 MMOL/L (3.6-5.0); SODIUM 141 MMOL/L (135-145); TOTAL PROTEIN 6.9 GM/DL (6.4-8.2)
== END 2019-11-03 08:28 | disposition home or self-care (01) ==
LOC: ONC 10:16
PROVIDERS: ATTEND Internal Medicine Hematology & Oncology
DX: Z51.11 Encounter for antineoplastic chemotherapy (principal); C49.0 Malignant neoplasm of connective and soft tissue of head, face and neck; Z79.899 Other long term (current) drug therapy
CPT/HCPCS: 96367; 96375; 96413; G0463; 36591; 80048; 80053; 83735; 85025; 96360; 96361

== ENCOUNTER → 2019-12-19 | Outpatient (CLI) | payer BC ==
[~2019-12-19] MED LIST changes: +CATHETER FLUSH 10 ML SYR IV PRN; -FOSAPREPITANT (CANCER CENTER) 150 MG in NS (IVPB) CANCER CENTER ONLY 150 ML IV SCH; +HOLD METFORMIN - RECEIVED CONTRAST 20 ML VIAL IV SCH; +IOHEXOL 350 MG/ML 100 ML (OMNIPAQUE 350) VIAL IV ONE; +NS 100 ML (IVPB) BAG IV ONE; -NS IV 1000 ML (CANCER CTR) IV SCH
--- NOTE | 2019-12-19 11:13 | Diagnostic Imaging Report ---
CLINICAL INDICATION: Patient with dizziness. 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 No current treatment. EXAMS: 1: Axial CT scan of the brain performed without and with IV contrast. Coronal and sagittal reformatted images are created. 2: Axial CT scan of the neck performed with IV contrast in conjunction with CT scan of the brain. Coronal and sagittal reformatted images are created. Auto Exposure Controls were utilized during the CT exam to meet ALARA standards for radiation dose reduction. 3: Axial CT scan of the chest performed with IV contrast in conjunction with CT scan of the brain. Coronal and sagittal reformatted images are created. Auto Exposure Controls were utilized during the CT exam to meet ALARA standards for radiation dose reduction. COMPARISON: CT scan of the neck and chest dated 10/16/2019. FINDINGS: Head CT: There is no evidence of acute cerebral infarct, intracranial hemorrhage, or gross mass effect. There is no abnormal IV contrast enhancement. The brain parenchymal volume appears appropriate for patient's age. There is normal [place]-white matter distinction. There is no significant midline shift or herniation. There is no evidence of hydrocephalus. The basal cisterns are unremarkable. The skull, extracranial soft tissue, and orbits are unremarkable. There is minimal ethmoid sinus mucosal thickening. Temporal bones show no significant abnormality. Neck CT scan: There is interval slight decreased size of the nodular mass in the upper right lateral aspect of the neck which is anterior to the right sternocleidomastoid muscle. This nodular mass measures 1.8 cm x 1.1 cm and this previously measured 2.0 cm x 1.6 cm. There is continued fat stranding adjacent to this nodular mass seen along the right side of the neck. There are no other nodular masses or enlarged lymph nodes seen. There is no other developing mass seen. There is stable soft tissue thickening/swelling involving the epiglottis and lower oropharyngeal soft tissue and hypopharyngeal soft tissue. There is no measurable mass seen. Stable asymmetry of the tongue base with the right side smaller in size than the left side. The salivary glands and thyroid gland are stable with no significant interval abnormality. Central line is partially visualized involving left side of the neck. Cervical spine degenerative disease is again seen with vertebral body spurs. There is severe right C3-C4 neural foramen narrowing from uncinate spurs and moderate left C4-C5 neural foramen narrowing. There is straightening of the cervical spine posture. CT Chest: Lungs are clear. There is no pleural effusion or pneumothorax. There is no lymphadenopathy involving the mediastinum or axillary regions. Mediastinal structures are unremarkable. Port-A-Cath seen overlying the left chest with tip in the [id number] superior vena cava region. Limited visualization of upper abdominal structures show no significant abnormality. PEG tube is in good position within the mid body region of the stomach. There is diffuse low attenuation seen throughout the liver which may be related to diffuse fatty infiltration. There are degenerative spurs involving the thoracic spine. IMPRESSION: 1: Minimal ethmoid sinus disease. Otherwise, unremarkable CT scan of the brain. 2: Interval decreased size of the nodular mass in the right lateral upper aspect of the neck which is anterior to the right sternocleidomastoid muscle. 3: The remainder of the neck is unremarkable for patient's age with no new neck mass or developing lymphadenopathy seen. 4: Stable and unremarkable CT scan of the chest for age with no evidence of developing mass or lymphadenopathy. Dictated by: Dictated on workstation # [id number]
== END ==
LOC: RAD 09:15
DX: C80.1 Malignant (primary) neoplasm, unspecified (principal); C77.0 Secondary and unspecified malignant neoplasm of lymph nodes of head, face and neck; J32.2 Chronic ethmoidal sinusitis
CPT/HCPCS: 70470; 70491; 71260

== ENCOUNTER 2019-12-21 14:26 | Outpatient (RCR) | payer BC ==
[2019-12-14 14:44] LABS: BASOPHILS % (AUTO) 0 % (0-10); EOSINOPHILS % (AUTO) 1 % (0-10); HEMATOCRIT 41 % (40-54); HEMOGLOBIN 13.5 g/dL (13.3-17.7); LYMPHOCYTES # (AUTO) 1.1 10^3/uL (1.0-4.0); LYMPHOCYTES % (AUTO) 32 % (12-44); MEAN CORPUSCULAR HEMOGLOBIN 31 pg (25-34); MEAN CORPUSCULAR HGB CONC 33 g/dL (32-36); MEAN CORPUSCULAR VOLUME 95 fL (80-99); MEAN PLATELET VOLUME 10.8 fL (9.0-12.2); MONOCYTES # (AUTO) 0.4 10^3/uL (0.0-1.0); MONOCYTES % (AUTO) 12 % (0-12); NEUTROPHILS # (AUTO) 1.9 10^3/uL (1.8-7.8); NEUTROPHILS % (AUTO) 54 % (42-75); PLATELET COUNT 176 10^3/uL (130-400); WHITE BLOOD COUNT 3.5 10^3/uL (4.3-11.0)
[2019-12-14 15:00] LABS: ALANINE AMINOTRANSFERASE 22 U/L (0-55); ALBUMIN 4.3 GM/DL (3.2-4.5); ALKALINE PHOSPHATASE 79 U/L (40-136); BILIRUBIN,TOTAL 0.6 MG/DL (0.1-1.0); BUN/CREATININE RATIO 7; CALCIUM 9.7 MG/DL (8.5-10.1); CARBON DIOXIDE 24 MMOL/L (21-32); CHLORIDE 103 MMOL/L (98-107); CREATININE SERUM 1.07 MG/DL (0.60-1.30); GFR ESTIMATED > 60; GLUCOSE 122 MG/DL (70-105); POTASSIUM 3.9 MMOL/L (3.6-5.0); SODIUM 139 MMOL/L (135-145); TOTAL PROTEIN 7.5 GM/DL (6.4-8.2)
[~2019-12-21 14:26] MED LIST changes: -CATHETER FLUSH 10 ML SYR IV PRN; -HOLD METFORMIN - RECEIVED CONTRAST 20 ML VIAL IV SCH; -IOHEXOL 350 MG/ML 100 ML (OMNIPAQUE 350) VIAL IV ONE; -NS 100 ML (IVPB) BAG IV ONE
== END 2020-01-09 11:53 | disposition home or self-care (01) ==
LOC: ONC 14:26
PROVIDERS: ATTEND Internal Medicine Hematology & Oncology
DX: Z51.11 Encounter for antineoplastic chemotherapy (principal); C49.0 Malignant neoplasm of connective and soft tissue of head, face and neck; Z79.899 Other long term (current) drug therapy
CPT/HCPCS: 36591; 80053; 84443; 85025; 99213

== ENCOUNTER 2020-01-24 08:48 | Outpatient (RCR) | payer BC ==
[2020-01-24 09:24] LABS: BASOPHILS % (AUTO) 1 % (0-10); EOSINOPHILS # (AUTO) 0.1 10^3/uL (0.0-0.3); EOSINOPHILS % (AUTO) 1 % (0-10); HEMATOCRIT 42 % (40-54); HEMOGLOBIN 13.9 g/dL (13.3-17.7); LYMPHOCYTES # (AUTO) 1.3 10^3/uL (1.0-4.0); LYMPHOCYTES % (AUTO) 29 % (12-44); MEAN CORPUSCULAR HEMOGLOBIN 31 pg (25-34); MEAN CORPUSCULAR HGB CONC 33 g/dL (32-36); MEAN CORPUSCULAR VOLUME 93 fL (80-99); MEAN PLATELET VOLUME 10.9 fL (9.0-12.2); MONOCYTES # (AUTO) 0.5 10^3/uL (0.0-1.0); MONOCYTES % (AUTO) 12 % (0-12); NEUTROPHILS # (AUTO) 2.4 10^3/uL (1.8-7.8); NEUTROPHILS % (AUTO) 56 % (42-75); PLATELET COUNT 178 10^3/uL (130-400); WHITE BLOOD COUNT 4.3 10^3/uL (4.3-11.0)
[2020-01-24 09:42] LABS: ALANINE AMINOTRANSFERASE 18 U/L (0-55); ALBUMIN 4.2 GM/DL (3.2-4.5); ALKALINE PHOSPHATASE 66 U/L (40-136); BILIRUBIN,TOTAL 0.6 MG/DL (0.1-1.0); BUN/CREATININE RATIO 12; CALCIUM 9.5 MG/DL (8.5-10.1); CARBON DIOXIDE 22 MMOL/L (21-32); CHLORIDE 104 MMOL/L (98-107); CREATININE SERUM 0.91 MG/DL (0.60-1.30); GFR ESTIMATED > 60; GLUCOSE 87 MG/DL (70-105); POTASSIUM 3.6 MMOL/L (3.6-5.0); SODIUM 139 MMOL/L (135-145); TOTAL PROTEIN 7.2 GM/DL (6.4-8.2)
== END 2020-02-22 16:40 | disposition home or self-care (01) ==
LOC: ONC 08:48
PROVIDERS: ATTEND Internal Medicine Hematology & Oncology
DX: Z51.11 Encounter for antineoplastic chemotherapy (principal); C49.0 Malignant neoplasm of connective and soft tissue of head, face and neck; Z79.899 Other long term (current) drug therapy
CPT/HCPCS: 80053; 85025; G0463; 36591

== ENCOUNTER → 2020-02-27 | Outpatient (CLI) | payer BC ==
--- NOTE | 2020-02-28 07:20 | Diagnostic Imaging Report ---
PATIENT: Taj STONER : 977 PET/CT INDICATION: Head and neck cancer. TECHNIQUE: PET/CT imaging was obtained from the base of the skull through the pelvis after the administration of 14.1 mCi of F-18 fluorodeoxyglucose injected into the right forearm. Limited CT imaging was utilized for localization and attenuation correction purposes. The low energy CT utilized for attenuation correction is not considered to be of high enough spatial resolution to allow in and of itself a separate anatomical analysis. Height: 6 feet 1 inch Weight: 207 Blood glucose: 83 The previous PET/CT exam performed at the [facility] on 05/29/2019 noted a large oval hypermetabolic mass in the right neck along the posterior aspect of the mandible. In the interval since the prior exam, there has been a marked reduction in size of that mass. This mass now measures approximately 8.6 x 9.2 mm as opposed to 35.5 x 49.3 mm on the previous study. There is virtually no hypermetabolic activity associated with this residual mass either. There is no other hypermetabolic activity identified to suggest malignancy. There is physiologic activity in the brain, heart, kidneys, bowel and bladder. The CT images failed to show any sign of an acute abnormality. There is now a gastrostomy tube in place and the tube seems to be in good position. There has also been interval insertion of a left-sided Port-A-Cath. The tip of the catheter is in the distal superior vena cava. IMPRESSION: 1. The appearance of the PET/CT exam has improved considerably as the large hypermetabolic mass lying posterior to the right mandible seen on the previous exam has diminished in size considerably. There is virtually no hypermetabolic activity associated with this finding as well. 2. There is no other hypermetabolic activity to suggest the presence of malignancy. 3. There is no sign of an acute abnormality. 4. There has been interval insertion of a Port-A-Cath on the left and a gastrostomy tube. Dictated by: Dictated on workstation # [id number]
== END ==
LOC: RAD 08:15
PROVIDERS: ATTEND Nurse Practitioner Adult Health
DX: Z08 Encounter for follow-up examination after completed treatment for malignant neoplasm (principal); R22.0 Localized swelling, mass and lump, head; Z85.89 Personal history of malignant neoplasm of other organs and systems; Z95.9 Presence of cardiac and vascular implant and graft, unspecified; Z93.1 Gastrostomy status
CPT/HCPCS: 78815; A9552

== ENCOUNTER 2020-03-14 14:19 | Outpatient (RCR) | payer BC ==
[2020-02-29 09:52] LABS: BASOPHILS % (AUTO) 0 % (0-10); EOSINOPHILS # (AUTO) 0.1 10^3/uL (0.0-0.3); EOSINOPHILS % (AUTO) 1 % (0-10); HEMATOCRIT 41 % (40-54); HEMOGLOBIN 13.8 g/dL (13.3-17.7); LYMPHOCYTES # (AUTO) 1.8 10^3/uL (1.0-4.0); LYMPHOCYTES % (AUTO) 32 % (12-44); MEAN CORPUSCULAR HEMOGLOBIN 31 pg (25-34); MEAN CORPUSCULAR HGB CONC 34 g/dL (32-36); MEAN CORPUSCULAR VOLUME 92 fL (80-99); MEAN PLATELET VOLUME 10.6 fL (9.0-12.2); MONOCYTES # (AUTO) 0.5 10^3/uL (0.0-1.0); MONOCYTES % (AUTO) 9 % (0-12); NEUTROPHILS % (AUTO) 56 % (42-75); PLATELET COUNT 208 10^3/uL (130-400); WHITE BLOOD COUNT 5.4 10^3/uL (4.3-11.0)
[2020-02-29 10:14] LABS: ALANINE AMINOTRANSFERASE 22 U/L (0-55); ALBUMIN 4.2 GM/DL (3.2-4.5); ALKALINE PHOSPHATASE 78 U/L (40-136); BILIRUBIN,TOTAL 0.7 MG/DL (0.1-1.0); BUN/CREATININE RATIO 9; CALCIUM 9.9 MG/DL (8.5-10.1); CARBON DIOXIDE 24 MMOL/L (21-32); CHLORIDE 103 MMOL/L (98-107); GFR ESTIMATED > 60; GLUCOSE 119 MG/DL (70-105); POTASSIUM 3.9 MMOL/L (3.6-5.0); SODIUM 138 MMOL/L (135-145); TOTAL PROTEIN 7.5 GM/DL (6.4-8.2)
== END 2020-05-29 | disposition home or self-care (01) ==
LOC: ONC 14:19
PROVIDERS: ATTEND Internal Medicine Hematology & Oncology
DX: C49.0 Malignant neoplasm of connective and soft tissue of head, face and neck (principal); E11.9 Type 2 diabetes mellitus without complications; K91.2 Postsurgical malabsorption, not elsewhere classified; Z79.899 Other long term (current) drug therapy; Z92.21 Personal history of antineoplastic chemotherapy; Z92.3 Personal history of irradiation
CPT/HCPCS: 80053; 84443; 85025; G0463; 36591

== ENCOUNTER → 2020-05-27 | Outpatient (CLI) | payer BC ==
[~2020-05-27] MED LIST changes: +CATHETER FLUSH 10 ML SYR IV PRN; +HOLD METFORMIN - RECEIVED CONTRAST 20 ML VIAL IV SCH; +IOHEXOL 350 MG/ML 100 ML (OMNIPAQUE 350) VIAL IV ONE; +NS 100 ML (IVPB) BAG IV ONE
--- NOTE | 2020-05-27 11:20 | Diagnostic Imaging Report ---
PROCEDURE: CT neck soft tissue with contrast. TECHNIQUE: Multiple contiguous axial images were obtained through the neck after the administration of contrast. Auto Exposure Controls were utilized during the CT exam to meet ALARA standards for radiation dose reduction. INDICATION: Followup neck cancer. COMPARISON: PET/CT on 02/27/2020 and 05/29/2019. CT neck on 10/16/2019. FINDINGS: There has been continued decrease in size in the pathologically enlarged lymph node in the right level 2 station now measuring 1.0 x 0.8 cm, previously measuring 2.0 x 1.6 cm on the exam of 10/16/2019. There is generalized soft tissue inflammation and thickening of the fascial planes in the neck, likely related to post treatment changes. No new pathologically enlarged lymphadenopathy is seen in the neck. No focal mass or fluid collection is seen in the nasopharynx, oropharynx, hypopharynx, or larynx. No evidence of airway compromise. No prevertebral or retropharyngeal fluid collections. The paravertebral fat planes are preserved. The parotid, submandibular, and thyroid gland are unremarkable. The vascular structures of the neck demonstrate no evidence of high-grade stenosis on this nondedicated exam. A left port is visualized. The visualized lung apices are clear. The visualized intracranial contents demonstrate no evidence of pathologic intracranial enhancement or intracranial mass effect. The visualized orbital contents are unremarkable. The visualized paranasal sinuses are clear. The mastoids and middle ears are clear. No acute osseous abnormality in the cervical spine. IMPRESSION: Continued decrease in size of the pathologically enlarged lymph node in the right level 2 cervical lymph node station. Post treatment changes are seen in the neck. No evidence of new pathologically enlarged lymphadenopathy. No mass or fluid collection is seen in the aerodigestive tract. Recommend continued surveillance as indicated. Dictated by: Dictated on workstation # [id number]
== END ==
LOC: RAD 09:45
PROVIDERS: ATTEND Internal Medicine Hematology & Oncology
DX: C49.0 Malignant neoplasm of connective and soft tissue of head, face and neck (principal); R59.0 Localized enlarged lymph nodes
CPT/HCPCS: 70491

== ENCOUNTER → 2020-08-16 | Outpatient (CLI) | payer BC ==
--- NOTE | 2020-08-16 15:12 | Diagnostic Imaging Report ---
EXAMINATION: CT neck and chest with intravenous contrast. TECHNIQUE: Multiple contiguous axial images were obtained through the neck and chest after the uneventful administration of intravenous contrast. All CT scans use one or more of the following dose optimizing techniques: automated exposure control, MA and/or KvP adjustment based on patient size and exam type or iterative reconstruction. HISTORY: Neck cancer. COMPARISON: 10/16/2019 FINDINGS: Neck CT: Previously seen lymphadenopathy in the neck is resolved. There is no neck mass. The muscles of the neck are normal. Vessels of the neck demonstrate normal course and caliber. Fascial planes are preserved and the deep spaces of the neck are normal. The visualized airway is widely patent. The base of the skull and the temporal bones are normal. Limited views of the brain including the cerebellum and brainstem are normal. The limited view of the [place] is unremarkable. The visualized portions of the orbits are normal. The spinal canal is normal in caliber. Intervertebral disk heights are normal. Neural foramina are normal. Chest CT: There is no edema or pneumonia. No pleural effusion. No pneumothorax. No suspicious nodules. There is no axillary or supraclavicular lymphadenopathy. There is no mediastinal lymphadenopathy. Heart size is normal. There are mild coronary artery calcifications. No pericardial effusion. Aorta is normal in caliber. Limited views of the upper abdomen are unremarkable. There are no suspicious osseous lesions. IMPRESSION: 1. Resolution of previously seen cervical lymphadenopathy. 2. No metastatic disease seen in the neck. Dictated by: Dictated on workstation # [id number]
== END ==
LOC: RAD 12:45
PROVIDERS: ATTEND Internal Medicine Hematology & Oncology
DX: C49.0 Malignant neoplasm of connective and soft tissue of head, face and neck (principal)
CPT/HCPCS: 70491; 71260

== ENCOUNTER 2020-08-23 12:57 | Outpatient (RCR) | payer BC ==
[2020-06-03 10:44] LABS: BASOPHILS % (AUTO) 1 % (0-10); EOSINOPHILS # (AUTO) 0.1 10^3/uL (0.0-0.3); EOSINOPHILS % (AUTO) 1 % (0-10); HEMATOCRIT 43 % (40-54); HEMOGLOBIN 14.2 g/dL (13.3-17.7); LYMPHOCYTES # (AUTO) 1.4 10^3/uL (1.0-4.0); LYMPHOCYTES % (AUTO) 35 % (12-44); MEAN CORPUSCULAR HEMOGLOBIN 31 pg (25-34); MEAN CORPUSCULAR HGB CONC 33 g/dL (32-36); MEAN CORPUSCULAR VOLUME 92 fL (80-99); MEAN PLATELET VOLUME 10.2 fL (9.0-12.2); MONOCYTES # (AUTO) 0.5 10^3/uL (0.0-1.0); MONOCYTES % (AUTO) 12 % (0-12); NEUTROPHILS # (AUTO) 2.1 10^3/uL (1.8-7.8); NEUTROPHILS % (AUTO) 51 % (42-75); PLATELET COUNT 210 10^3/uL (130-400); WHITE BLOOD COUNT 4.1 10^3/uL (4.3-11.0)
[2020-06-03 11:09] LABS: ALANINE AMINOTRANSFERASE 13 U/L (0-55); ALBUMIN 4.3 GM/DL (3.2-4.5); ALKALINE PHOSPHATASE 60 U/L (40-136); BILIRUBIN,TOTAL 0.4 MG/DL (0.1-1.0); BUN/CREATININE RATIO 11; CALCIUM 9.3 MG/DL (8.5-10.1); CARBON DIOXIDE 22 MMOL/L (21-32); CHLORIDE 105 MMOL/L (98-107); CREATININE SERUM 0.87 MG/DL (0.60-1.30); GFR ESTIMATED > 60; GLUCOSE 92 MG/DL (70-105); POTASSIUM 3.9 MMOL/L (3.6-5.0); SODIUM 138 MMOL/L (135-145); TOTAL PROTEIN 7.1 GM/DL (6.4-8.2)
[2020-08-16 13:21] LABS: BASOPHILS % (AUTO) 1 % (0-10); EOSINOPHILS # (AUTO) 0.1 10^3/uL (0.0-0.3); EOSINOPHILS % (AUTO) 2 % (0-10); HEMATOCRIT 43 % (40-54); HEMOGLOBIN 14.2 g/dL (13.3-17.7); LYMPHOCYTES # (AUTO) 1.3 10^3/uL (1.0-4.0); LYMPHOCYTES % (AUTO) 31 % (12-44); MEAN CORPUSCULAR HEMOGLOBIN 31 pg (25-34); MEAN CORPUSCULAR HGB CONC 33 g/dL (32-36); MEAN CORPUSCULAR VOLUME 93 fL (80-99); MONOCYTES # (AUTO) 0.5 10^3/uL (0.0-1.0); MONOCYTES % (AUTO) 11 % (0-12); NEUTROPHILS # (AUTO) 2.4 10^3/uL (1.8-7.8); NEUTROPHILS % (AUTO) 56 % (42-75); PLATELET COUNT 199 10^3/uL (130-400); WHITE BLOOD COUNT 4.3 10^3/uL (4.3-11.0)
[2020-08-16 13:37] LABS: ALANINE AMINOTRANSFERASE 19 U/L (0-55); ALBUMIN 4.3 GM/DL (3.2-4.5); ALKALINE PHOSPHATASE 77 U/L (40-136); BILIRUBIN,TOTAL 0.7 MG/DL (0.1-1.0); BUN/CREATININE RATIO 11; CALCIUM 9.7 MG/DL (8.5-10.1); CARBON DIOXIDE 26 MMOL/L (21-32); CHLORIDE 107 MMOL/L (98-107); CREATININE SERUM 0.84 MG/DL (0.60-1.30); GFR ESTIMATED > 60; GLUCOSE 90 MG/DL (70-105); POTASSIUM 4.6 MMOL/L (3.6-5.0); SODIUM 141 MMOL/L (135-145); TOTAL PROTEIN 7.1 GM/DL (6.4-8.2)
[~2020-08-23 12:57] MED LIST changes: -CATHETER FLUSH 10 ML SYR IV PRN; -HOLD METFORMIN - RECEIVED CONTRAST 20 ML VIAL IV SCH; -IOHEXOL 350 MG/ML 100 ML (OMNIPAQUE 350) VIAL IV ONE; -NS 100 ML (IVPB) BAG IV ONE
== END 2020-09-01 | disposition home or self-care (01) ==
LOC: ONC 12:57
PROVIDERS: ATTEND Internal Medicine Hematology & Oncology
DX: C49.0 Malignant neoplasm of connective and soft tissue of head, face and neck (principal); E11.9 Type 2 diabetes mellitus without complications; K91.2 Postsurgical malabsorption, not elsewhere classified; Z79.899 Other long term (current) drug therapy; Z92.21 Personal history of antineoplastic chemotherapy; Z92.3 Personal history of irradiation; Z90.89 Acquired absence of other organs
CPT/HCPCS: 80053; 84443; 85025; G0463; 36591; 99213

== ENCOUNTER 2020-11-28 12:49 | Outpatient (RCR) | payer BC ==
[2020-11-28 13:11] LABS: BASOPHILS % (AUTO) 1 % (0-10); EOSINOPHILS # (AUTO) 0.1 10^3/uL (0.0-0.3); EOSINOPHILS % (AUTO) 2 % (0-10); HEMATOCRIT 41 % (40-54); HEMOGLOBIN 14.2 g/dL (13.3-17.7); LYMPHOCYTES # (AUTO) 1.3 10^3/uL (1.0-4.0); LYMPHOCYTES % (AUTO) 30 % (12-44); MEAN CORPUSCULAR HEMOGLOBIN 31 pg (25-34); MEAN CORPUSCULAR HGB CONC 34 g/dL (32-36); MEAN CORPUSCULAR VOLUME 91 fL (80-99); MEAN PLATELET VOLUME 10.3 fL (9.0-12.2); MONOCYTES # (AUTO) 0.4 10^3/uL (0.0-1.0); MONOCYTES % (AUTO) 10 % (0-12); NEUTROPHILS # (AUTO) 2.5 10^3/uL (1.8-7.8); NEUTROPHILS % (AUTO) 58 % (42-75); PLATELET COUNT 171 10^3/uL (130-400); WHITE BLOOD COUNT 4.3 10^3/uL (4.3-11.0)
[2020-11-28 13:50] LABS: ALBUMIN 4.2 GM/DL (3.2-4.5); BILIRUBIN,TOTAL 0.4 MG/DL (0.1-1.0); CALCIUM 9.6 MG/DL (8.5-10.1); CREATININE SERUM 0.97 MG/DL (0.60-1.30); POTASSIUM 4.4 MMOL/L (3.6-5.0); TOTAL PROTEIN 7.2 GM/DL (6.4-8.2)
== END 2020-12-11 | disposition home or self-care (01) ==
LOC: ONC 12:49
PROVIDERS: ATTEND Internal Medicine Hematology & Oncology
DX: C49.0 Malignant neoplasm of connective and soft tissue of head, face and neck (principal); E11.9 Type 2 diabetes mellitus without complications; E66.01 Morbid (severe) obesity due to excess calories; K91.2 Postsurgical malabsorption, not elsewhere classified; Z79.899 Other long term (current) drug therapy; Z92.21 Personal history of antineoplastic chemotherapy; Z92.3 Personal history of irradiation; Z90.89 Acquired absence of other organs
CPT/HCPCS: 36591; 80053; 84443; 85025; 99213

== ENCOUNTER → 2021-02-25 | Outpatient (CLI) | payer BC ==
--- NOTE | 2021-02-25 16:03 | Diagnostic Imaging Report ---
INDICATION: Malignant neoplasm of the soft tissues of the neck. TECHNIQUE: Serum blood glucose level at the time of injection is 100 mg/dL. Patient was administered 13.1 mCi F-18 FDG intravenously and PET imaging was performed from the top of the skull to mid thighs. Noncontrast CT was also performed for attenuation correction and anatomic correlation. CORRELATION is made with prior PET/CT study from 02/27/2020. FINDINGS: There is symmetric activity throughout the brain. There is normal physiologic activity throughout the soft tissues of the neck. No suspicious hypermetabolic foci are identified. No mediastinal or hilar hypermetabolism is identified. No pulmonary parenchymal hypermetabolism is identified. Physiologic activity throughout the gastrointestinal and genitourinary tracts of the abdomen and pelvis are noted. No suspicious hypermetabolism is identified. IMPRESSION: Unremarkable PET/CT study. No suspicious foci of hypermetabolism is identified. Dictated by: Dictated on workstation # [id number]
== END ==
LOC: RAD 10:30
PROVIDERS: ATTEND Nurse Practitioner Adult Health
DX: C49.0 Malignant neoplasm of connective and soft tissue of head, face and neck (principal)
CPT/HCPCS: 78815; A9552

== ENCOUNTER 2021-03-06 09:24 | Outpatient (RCR) | payer BC | END 2021-03-17 | disposition home or self-care (01) | LOC: ONC 09:24 | PROVIDERS: ATTEND Internal Medicine Hematology & Oncology | DX: C49.0 Malignant neoplasm of connective and soft tissue of head, face and neck (principal); E66.01 Morbid (severe) obesity due to excess calories; Z79.899 Other long term (current) drug therapy; Z92.21 Personal history of antineoplastic chemotherapy; Z92.3 Personal history of irradiation; Z90.89 Acquired absence of other organs | CPT/HCPCS: 99213 ==

== ENCOUNTER 2021-08-21 10:15 | Outpatient (RCR) | payer BC | END 2021-09-14 | disposition home or self-care (01) | LOC: ONC 10:15 | PROVIDERS: ATTEND Radiology Radiation Oncology | DX: C49.0 Malignant neoplasm of connective and soft tissue of head, face and neck (principal); C77.0 Secondary and unspecified malignant neoplasm of lymph nodes of head, face and neck; Z92.3 Personal history of irradiation; Z92.21 Personal history of antineoplastic chemotherapy; E66.01 Morbid (severe) obesity due to excess calories | CPT/HCPCS: 99213 ==

== ENCOUNTER → 2021-08-29 | Outpatient (CLI) | payer BC ==
--- NOTE | 2021-08-29 16:57 | Diagnostic Imaging Report ---
INDICATION: Head and neck cancer. TECHNIQUE: Patient was administered 26.3 mCi technetium-99m MDP intravenously, and whole body imaging was performed after a three-hour delay. COMPARISON: No prior studies are available for comparison. FINDINGS: There is normal uptake of activity by the axial and appendicular skeleton. There is uptake by the kidneys with excretion into the urinary bladder. Vague uptake involving anterior right approximately fourth rib is noted, which could be post-traumatic. No other suspicious foci are seen. IMPRESSION: No scintigraphic evidence of osseous metastatic disease. Dictated by: Dictated on workstation # [id number]
== END ==
LOC: CARD 11:25
PROVIDERS: ATTEND Nurse Practitioner Adult Health
DX: C49.0 Malignant neoplasm of connective and soft tissue of head, face and neck (principal)
CPT/HCPCS: 78306; A9503

== ENCOUNTER 2021-10-16 05:46 | Outpatient (CLI) | payer BC ==
[~2021-10-16] VITALS: Ht 185.4 cm; Wt 99.8 kg
== END 2021-10-16 12:29 | disposition home or self-care (01) ==
LOC: PREOP 05:46
PROVIDERS: ATTEND Surgery
DX: Z01.818 Encounter for other preprocedural examination (principal)

== ENCOUNTER 2021-10-24 06:03 | Day surgery (SDC) | payer BC ==
[~2021-10-24] VITALS: Ht 185.5 cm; Wt 102.5 kg
[2021-10-24] VITALS (7 sets, daily range): BP systolic 94–117; BP diastolic 55–82
[2021-10-24] MEDS ORDERED: LACTATED RINGERS 1,000 ML IV PRN (07:00)
[2021-10-24] MEDS ORDERED: ceFAZolin INJECTION 2,000 MG in NS (IVPB) 50 ML IV ONE (07:00)
--- NOTE | 2021-10-24 07:41 | Progress Note-Pre Operative ---
Pre-Operative Progress Note Date of Available H&P: Oct 13, 2021 Date H&P Reviewed: Oct 24, 2021 Time H&P Reviewed: 07:41 History & Physical: H&P Reviewed, Patient Examed, No changes noted Pre-Operative Diagnosis: hx squamous cell cancer, SARAH GARCIA DO Oct 24, 2021 07:41
[2021-10-24] MEDS ORDERED: LIDOCAINE/EPI 2% 1:200,00 (XYLOCAINE) 20 ML VIAL ONE (07:49)
[2021-10-24] MEDS ORDERED: MIDAZOLAM 2 MG/2 ML (VERSED) VIAL ONE (08:44)
[2021-10-24] MEDS ORDERED: LIDOCAINE/EPI 2% 1:100,00 (XYLOCAINE) 20 ML VIAL IJ ONE (08:59)
[2021-10-24] MEDS ORDERED: PROPOFOL INJECTION 50 ML IV ONE (09:06)
--- NOTE | 2021-10-24 09:43 | Discharge Inst-Simple/Standard ---
Discharge Inst-Standard Patient Instructions/Follow Up Plan of Care/Instructions/FU: 2 weeks [place] Activity as Tolerated: Yes Discharge Diet: Regular Diet Other Inst to Patient Follow up Appt: Make appointment for 2 week. Instructions: No strenuous activity. May shower in 24 hours, no tub bath or soaking. Use incentive spirometer at home as directed. No Smoking Skin/Wound Care: You have special glue over your incision that will fall off on it's own. Symptoms to Report: Appetite Changes, Extremity Discoloration, Numbness/Tingling, Swelling Increased, Bleeding Excessive, Eyesight Changes, Pain Increased, Urine Color Change, Constipation(Persistent), Fever over 101 degree F, Pain/Pressure in [place] [address], Urinating Difficulty, Cough Up/Vomit Blood, Heart Beat Irreg/Pounding, Pain/Pressure in jaw, Vaginal Bleeding Increase, Cramps in feet or legs, Lightheadedness, Pain/Pressure in shoulder, Diarrhea(Persistent), Memory Changes Suddenly, Questions/Concerns, Weight gain consecutive days, Dizziness/Fainting, Nausea/Vomiting, Shortness of Breath, Weight gain over 2 pounds If questions or concerns contact your physician Or seek help at emergency department. SARAH GARCIA DO Oct 24, 2021 09:43
--- NOTE | 2021-10-24 09:48 | Progress Note-Post Operative ---
Post-Operative Progess Note Surgeon (s)/[employer] (s) Surgeon SARAH GARCIA DO [employer]: na Pre-Operative Diagnosis hx squamous cell cancer, Post-Operative Diagnosis same Procedure & Operative Findings Date of Procedure 10/24/21 Procedure Performed/Findings PROCEDURE: Removal of port, COMPLICATIONS: None. INDICATIONS: The patient is a 46 year-old male who had a port previously placed. Patient is ok to have port removed. The patient was explained risk and benefits of the procedure and wished to proceed with procedure. Consent was signed on the chart. PROCEDURE: The patient was taken to the operating suite and was prepped and draped in sterile fashion. A surgical pause was performed. Local anesthetic was infiltrated to the area around the port. A number 15 blade scalpel was used to make an incision. Cautery was used to dissect down to the port which was then grasped and then dissected around. The catheter was removed in its entirety. The port was then able to be dissected out of the pocket and elevated. The wound was then irrigated with copious amounts of irrigation. Hemostasis had been achieved. The subcutaneous tissues were then reapproximated using 3-0 Vicryl. Skin was then closed using Skin Affix placed over the incision. The patient tolerated the procedure well without complication and was taken to recovery room in stable condition. Anesthesia Type mac c local Estimated Blood Loss Estimated blood loss (mL): minimal Specimens/Packing Specimens Removed SARAH Cunningham DO Oct 24, 2021 09:48
--- NOTE | 2021-10-24 10:31 | Anesthesia-General Post-Op ---
MAC Patient Condition Mental Status/LOC: Same as Preop Cardiovascular: Satisfactory Nausea/Vomiting: Absent Respiratory: Satisfactory Pain: Controlled Complications: Absent Post Op Complications Complications None Follow Up Care/Instructions Patient Instructions None needed. Anesthesiology Discharge Order Discharge Order Patient is doing well, no complaints, stable vital signs, no apparent adverse anesthesia problems. No complications reported per nursing. CARI NEGRETE CRNA Oct 24, 2021 10:31
== END 2021-10-24 10:07 ==
LOC: SDC 06:03
PROVIDERS: ATTEND Surgery
DX: Z45.2 Encounter for adjustment and management of vascular access device (principal); C44.42 Squamous cell carcinoma of skin of scalp and neck; F17.210 Nicotine dependence, cigarettes, uncomplicated
CPT/HCPCS: 87081

== ENCOUNTER 2022-12-14 16:11 | Outpatient (RCR) | payer BC | END 2022-12-15 | disposition home or self-care (01) | PROVIDERS: ATTEND Physician Assistant | DX: M54.2 Cervicalgia (principal); L59.8 Other specified disorders of the skin and subcutaneous tissue related to radiation; Y84.2 Radiological procedure and radiotherapy as the cause of abnormal reaction of the patient, or of later complication, without mention of misadventure at the time of the procedure ==

== ENCOUNTER 2023-01-12 16:15 | Outpatient (RCR) | payer BC | END 2023-01-14 | disposition home or self-care (01) | PROVIDERS: ATTEND Physician Assistant | DX: M54.2 Cervicalgia (principal); L59.8 Other specified disorders of the skin and subcutaneous tissue related to radiation; Y84.2 Radiological procedure and radiotherapy as the cause of abnormal reaction of the patient, or of later complication, without mention of misadventure at the time of the procedure ==